=== PATIENT | female | born 1955 | race Caucasian/White ===

== ENCOUNTER 2017-05-21 15:10 | Observation (INO) | payer OTHER ==
[2017-05-21] MEDS ORDERED: ACETAMINOPHEN TAB 325 MG TAB PO STA (15:58)
[2017-05-21] MEDS ORDERED: IPRATROPIUM-ALBUTEROL 3 ML NEB INHALATION STA (15:59)
[2017-05-21 16:19] LABS: Basophils # (A) 0.1 k/uL (0-0.2); Basophils % (A) 0 %; CH 31.9; CHCM 33.3; Eosinophils # (A) 0.1 k/uL (0-0.7); Eosinophils % (A) 0 %; HCT 51.1 % (34.0-46.0); HDW 2.08; HGB 16.2 gm/dL (11.4-16.0); Luc # (Auto) 0.19; Luc % (Auto) 1; Lymphocytes # (A) 0.9 k/uL (1.0-4.8); Lymphocytes % (A) 6 %; MCH 30.6 pg (25.0-35.0); MCHC 31.8 g/dL (31.0-37.0); MCV 96.2 fL (80.0-100.0); Mean Platelet Volume 8.4; Monocytes # (A) 0.7 k/uL (0-1.0); Monocytes % (A) 5 %; Neutrophils % (A) 87 %; RBC 5.31 m/uL (3.80-5.40); RDW 13.7 % (11.5-15.5); WBC (Perox) 15.67
--- NOTE | 2017-05-21 16:26 | ED ---
General Adult HPI - General Chief complaint: Shortness of Breath Stated complaint: SOB Time Seen by Provider: 05/21/17 15:54 Source: patient, RN notes reviewed Mode of arrival: wheelchair Limitations: no limitations - History of Present Illness Initial comments: Patient is a pleasant 61-year-old female presenting to the emergency department with difficulty breathing. Onset of symptoms was 2 or 3 days ago. Patient does have cough with green sputum. Patient does have a history of COPD. Patient has had some subjective fever starting last night. - Related Data Home Medications Medication Instructions Recorded Confirmed Albuterol Inhaler [Ventolin Hfa 2 puff INHALATION RT-Q6H PRN 05/21/17 05/21/17 Inhaler] Albuterol Nebulized [Ventolin 2.5 mg INHALATION RT-QID PRN 05/21/17 05/21/17 Nebulized] Atorvastatin [Lipitor] 40 mg PO HS 05/21/17 05/21/17 Budesonide-Formot 160-4.5 Mcg 2 puff INHALATION RT-BID 05/21/17 05/21/17 [Symbicort 160-4.5 Mcg Inhaler] Cilostazol [Pletal] 100 mg PO BID 05/21/17 05/21/17 Ipratropium Nebulized [Atrovent 0.5 mg INHALATION RT-TID PRN 05/21/17 05/21/17 Nebulized] L.acidoph,Paracasei, B.lactis 1 cap PO BID 05/21/17 05/21/17 [Probiotic] Lisinopril [Prinivil] 10 mg PO DAILY 05/21/17 05/21/17 Loratadine [Claritin] 10 mg PO DAILY 05/21/17 05/21/17 Multivitamins, Thera [Multivitamin 1 tab PO BID 05/21/17 05/21/17 (formulary)] Ranitidine HCl [Zantac] 75 mg PO BID 05/21/17 05/21/17 Allergies Allergy/AdvReac Type Severity Reaction Status Date / Time umeclidinium Allergy Unknown Verified 05/21/17 16:19 [From Anoro Ellipta] vilanterol Allergy Unknown Verified 05/21/17 16:19 [From Anoro Ellipta] Review of Systems ROS Statement: Those systems with pertinent positive or pertinent negative responses have been documented in the HPI. ROS Other: All systems not noted in ROS Statement are negative. Constitutional: Reports: fever Eyes: Denies: eye pain ENT: Denies: ear pain Respiratory: Reports: cough, dyspnea Cardiovascular: Denies: chest pain Endocrine: Reports: fatigue Gastrointestinal: Denies: abdominal pain Genitourinary: Denies: dysuria Musculoskeletal: Denies: back pain Skin: Denies: rash Neurological: Denies: weakness Past Medical History Past Medical History: COPD, Vascular Disorder History of Any Multi-Drug Resistant Organisms: None Reported Past Psychological History: No Psychological Hx Reported Smoking Status: Current every day smoker Past Alcohol Use History: None Reported Past Drug Use History: None Reported General Exam Limitations: no limitations General appearance: alert Head exam: Present: atraumatic Eye exam: Present: normal appearance, PERRL ENT exam: Present: normal oropharynx Neck exam: Present: normal inspection Respiratory exam: Present: respiratory distress, wheezes, decreased breath sounds Cardiovascular Exam: Present: tachycardia GI/Abdominal exam: Present: soft. Absent: tenderness, guarding Extremities exam: Present: normal inspection. Absent: pedal edema, calf tenderness Neurological exam: Present: alert Psychiatric exam: Present: normal affect, normal mood Skin exam: Present: normal color Course Vital Signs 05/21/17 05/21/17 05/21/17 15:36 16:04 16:30 Temperature 101.0 F H Pulse Rate 134 H 120 H Respiratory 24 20 Rate Blood Pressure 133/64 O2 Sat by Pulse 82 L Oximetry 05/21/17 16:40 Temperature Pulse Rate 122 H Respiratory Rate Blood Pressure O2 Sat by Pulse Oximetry - Reevaluation(s) Reevaluation #1: 05/21/17 17:58 Patient meet sepsis criteria diagnosed at 1758. Patient reexamined and is improved. Patient is resting more comfortably and not in respiratory distress. Heart rate remains somewhat elevated. Lungs with continued decreased air exchange and only mild wheezing. Case was discussed in detail with Dr. sherwood , who will admit for Dr. kelly. Patient and family were updated on results and plan. EKG Findings - EKG Comments: EKG Findings:: Sinus tachycardia 1:30. HI 134. QRS 120. QT 320. QTc 470. Left axis. Septal Q waves. Nonspecific ST-T. PVC is present. Medical Decision Making - Lab Data Result diagrams: 05/21/17 15:55 05/21/17 16:29 Lab Results 05/21/17 05/21/17 05/21/17 Range/Units 15:55 15:55 15:55 WBC 15.0 H (3.8-10.6) k/uL RBC 5.31 (3.80-5.40) m/uL Hgb 16.2 H (11.4-16.0) gm/dL Hct 51.1 H (34.0-46.0) % MCV 96.2 (80.0-100.0) fL MCH 30.6 (25.0-35.0) pg MCHC 31.8 (31.0-37.0) g/dL RDW 13.7 (11.5-15.5) % Plt Count 197 (150-450) k/uL Neutrophils % 87 % Lymphocytes % 6 % Monocytes % 5 % Eosinophils % 0 % Basophils % 0 % Neutrophils # 13.0 H (1.3-7.7) k/uL Lymphocytes # 0.9 L (1.0-4.8) k/uL Monocytes # 0.7 (0-1.0) k/uL Eosinophils # 0.1 (0-0.7) k/uL Basophils # 0.1 (0-0.2) k/uL PT 11.0 (9.0-12.0) sec INR 1.1 (<1.2) APTT 23.2 (22.0-30.0) sec Sodium (137-145) mmol/L Potassium (3.5-5.1) mmol/L Chloride (98-107) mmol/L Carbon Dioxide (22-30) mmol/L Anion Gap mmol/L BUN (7-17) mg/dL Creatinine (0.52-1.04) mg/dL Est GFR (MDRD) Af Amer (>60 ml/min/1.73 sqM) Est GFR (MDRD) Non-Af (>60 ml/min/1.73 sqM) Glucose (74-99) mg/dL Plasma Lactic Acid Mark 1.5 (0.7-2.0) mmol/L Calcium (8.4-10.2) mg/dL Total Bilirubin (0.2-1.3) mg/dL AST (14-36) U/L ALT (9-52) U/L Alkaline Phosphatase (38-126) U/L Total Protein (6.3-8.2) g/dL Albumin (3.5-5.0) g/dL 05/21/17 Range/Units 16:29 WBC (3.8-10.6) k/uL RBC (3.80-5.40) m/uL Hgb (11.4-16.0) gm/dL Hct (34.0-46.0) % MCV (80.0-100.0) fL MCH (25.0-35.0) pg MCHC (31.0-37.0) g/dL RDW (11.5-15.5) % Plt Count (150-450) k/uL Neutrophils % % Lymphocytes % % Monocytes % % Eosinophils % % Basophils % % Neutrophils # (1.3-7.7) k/uL Lymphocytes # (1.0-4.8) k/uL Monocytes # (0-1.0) k/uL Eosinophils # (0-0.7) k/uL Basophils # (0-0.2) k/uL PT (9.0-12.0) sec INR (<1.2) APTT (22.0-30.0) sec Sodium 133 L (137-145) mmol/L Potassium 4.2 (3.5-5.1) mmol/L Chloride 96 L (98-107) mmol/L Carbon Dioxide 31 H (22-30) mmol/L Anion Gap 6 mmol/L BUN 12 (7-17) mg/dL Creatinine 0.62 (0.52-1.04) mg/dL Est GFR (MDRD) Af Amer >60 (>60 ml/min/1.73 sqM) Est GFR (MDRD) Non-Af >60 (>60 ml/min/1.73 sqM) Glucose 110 H (74-99) mg/dL Plasma Lactic Acid Mark (0.7-2.0) mmol/L Calcium 9.1 (8.4-10.2) mg/dL Total Bilirubin 0.6 (0.2-1.3) mg/dL AST 24 (14-36) U/L ALT 31 (9-52) U/L Alkaline Phosphatase 60 (38-126) U/L Total Protein 6.6 (6.3-8.2) g/dL Albumin 3.8 (3.5-5.0) g/dL - Radiology Data Radiology results: image reviewed (Chest x-ray shows interstitial changes and hyperinflation.) Critical Care Time Critical Care Time: Yes Total Critical Care Time: 32 Disposition Clinical Impression: Acute exacerbation of chronic obstructive airways disease, Sepsis, Pneumonitis Disposition: ADMITTED IP TO THIS [facility] Condition: Serious Referrals: Lamine Kelly MD [Primary Care Provider] - 1-2 days Decision Time: 18:05
[2017-05-21 16:40] LABS: INR 1.1 (<1.2); Partial Thromboplastin Time 23.2 sec (22.0-30.0)
[2017-05-21 16:51] LABS: Anion Gap 6 mmol/L; Blood Urea Nitrogen 12 mg/dL (7-17); Calcium 9.1 mg/dL (8.4-10.2); Carbon Dioxide 31 mmol/L (22-30); Chloride 96 mmol/L (98-107); Glucose 110 mg/dL (74-99); Non-African American GFR(MDRD) >60 (>60 ml/min/1.73 sqM); Potassium 4.2 mmol/L (3.5-5.1); Sodium 133 mmol/L (137-145); Total Bilirubin 0.6 mg/dL (0.2-1.3); Total Protein 6.6 g/dL (6.3-8.2)
[2017-05-21 16:52] LABS: ALT 31 U/L (9-52); AST 24 U/L (14-36); Alkaline Phosphatase 60 U/L (38-126)
[2017-05-21] MEDS: SODIUM CHLORIDE 0.9% 500 ML IV SCH ×4 (16:52→18:28)
--- NOTE | 2017-05-21 16:59 | XR ---
EXAMINATION TYPE: XR chest 2V DATE OF EXAM: 05/21/2017 COMPARISON: 08/30/2012 HISTORY: 62-year-old female with fever TECHNIQUE: PA and lateral views FINDINGS: Heart is upper limits of normal in size. Mild atherosclerotic arch calcifications. Diffuse interstiti al prominence increased from prior. Some peribronchial cuffing is noted on the lateral view. Hyperinf lation. No joe consolidation or pleural effusion. IMPRESSION: Interstitial changes and hyperinflation. Underlying COPD is suggested. However, the interstitial dudley ges are increased from prior. Correlate to exclude superimposed atypical pneumonias or interstitial p neumonitis.
[2017-05-21] MEDS ORDERED: BUDESONIDE 0.5 MG/2 ML NEBU INHALATION SCH (17:51)
[2017-05-21] MEDS ORDERED: methylPREDNISolone SOD SUCCI 40 MG/ML 1 ML VIAL IV SCH (18:00)
[2017-05-21] MEDS ORDERED: ENOXAPARIN 40 MG/0.4 ML SYRINGE SQ SCH (18:00)
[2017-05-21] MEDS ORDERED: LACTATED RINGERS 1,000 ML IV SCH (18:00)
[2017-05-21] MEDS ORDERED: NICOTINE 7MG/24HR PATCH TRANSDERM SCH (18:00)
[2017-05-21] MEDS ORDERED: AZITHROMYCIN 500 MG in SODIUM CHLORIDE 0.9% 250 ML IVPB STA (18:05)
[2017-05-21] MEDS ORDERED: PNEUMONIA PROTOCOL UTILIZED 1 EACH MISC PO PRN (18:05)
[2017-05-21] MEDS ORDERED: SODIUM CHLORIDE 0.9% 1,000 ML IV SCH (18:15)
[2017-05-21 18:41] VITALS: RESP 18
--- NOTE | 2017-05-21 19:58 | HP ---
HISTORY AND PHYSICAL DATE OF ADMISSION: 05/21/17 PRESENTING COMPLAINT: Short of breath. HISTORY OF PRESENTING COMPLAINT: A 61-year-old patient, pleasant patient of Dr. Kelly. Chronic stable medical conditions include hypertension, hyperlipidemia, GERD, peripheral artery disease. The patient is long-standing smoker. Has underlying COPD diagnosis. The patient presents 3 days of worsening short of breath, wheezing, cough with yellow-green sputum, fevers, decreased appetite, tired, run down and very short of breath. Presents to the hospital. REVIEW OF SYSTEMS: Constitutional: Weak and tired. HEENT as above. RESPIRATORY: As above. Cardiovascular: None. Gastrointestinal: Heartburn. Genitourinary: None. Musculoskeletal: None. Dermatological: Bruising. Hematologic none. Lymphatics: None. Psychiatry: Some anxiety. Neurologic: None. PAST HISTORY: COPD, hypertension, hyperlipidemia, GERD, peripheral artery disease with a blocked artery in the left leg per Dr. Han vascular surgeon. Not a candidate for any surgical intervention. PAST SURGICAL HISTORY: None. HOME MEDICATIONS: 1. Zantac 25 mg p.o. b.i.d. 2. Claritin 10 mg p.o. daily. 3. Lipitor 40 mg q.h.s. 4. Ventolin HFA 2 puffs q.6h p.r.n. 5. Multivitamin 1 tab p.o. b.i.d. 6. Probiotic 1 capsule p.o. b.i.d. 7. Atrovent 0.5 nebulizer t.i.d. p.r.n. 8. Symbicort 160/4.5 two puffs b.i.d. 9. Prinivil 10 mg p.o. daily. 10.Pletal 100 mg p.o. b.i.d. 11.Ventolin 2.5 q.i.d. p.r.n. ALLERGIES: ELLIPTA. PHYSICAL EXAMINATION: Temperature on presentation 101.1, pulse 134, respiratory rate 24, blood pressure 130/64, pulse ox 82% room air. General appearance: Thin built, short of breath at rest. EYES: Pupils equal, conjunctivae normal. HEENT: Oral cavity normal. NECK: JVD not raised. Mass not palpable. RESPIRATORY: Effort increased. Accessary muscles are working. Not able to speak in full sentences. Lungs poor air entry. Prolonged expiration. CARDIOVASCULAR: First and second sounds normal. No edema. ABDOMEN: Soft, nontender. Liver and spleen not palpable. Lymphatics: No lymph node palpable in the neck, axillae or groin. PSYCHIATRY: Alert and oriented times three. Mood and affect anxious appearing. Dermatological: Some bruising is present. INVESTIGATIONS: White count 15, hemoglobin 16.2, potassium 4.2, BUN 12, creatinine 0.62. Chest x-ray shows possible infiltrate. ASSESSMENT: 1. Acute severe chronic obstructive pulmonary disease exacerbation probably from underlying pneumonia suspect gram-negative organism, present on admission causing severe sepsis. 2. Essential hypertension. 3. Hyperlipidemia. 4. Peripheral artery disease. Not for further intervention. 5. Mild hyponatremia present on admission. Likely hypoosmolar. 6. Chronic nicotine dependence. Patient is a cigarette smoker. PLAN: Patient is started on IV ceftriaxone, nebulized bronchodilators, IV steroids. The patient advised against smoking. Will be started on a nicotine patch. Home medications will be resumed. Pulmonary being consulted. Care was discussed with the patient. We will also add IV fluids. Copy to Dr. Kelly. KAILASH / JUAN: [id number] /
[2017-05-21] MEDS ORDERED: SYMBICORT 160-4.5 MCG INHALER INHALATION SCH (20:00)
[2017-05-21] MEDS ORDERED: IPRATROPIUM-ALBUTEROL 3 ML NEB INHALATION SCH (20:00)
[2017-05-21 20:19] VITALS: BMI 21.9
[2017-05-21] MEDS ORDERED: FAMOTIDINE 20 MG TAB PO SCH (21:00)
[2017-05-21] MEDS ORDERED: CILOSTAZOL 100 MG TAB PO SCH (21:00)
[2017-05-21] MEDS ORDERED: ATORVASTATIN 40 MG TAB PO SCH (21:00)
[2017-05-21 21:06] VITALS: BP 121/77; PULSE 108; TEMP 97.3
[2017-05-22] MEDS ORDERED: LISINOPRIL 10 MG TAB PO SCH (09:00)
[2017-05-22] MEDS ORDERED: LORATADINE 10 MG TAB PO SCH (09:00)
--- NOTE | 2017-06-26 07:11 | DS ---
DISCHARGE SUMMARY DATE OF ADMISSION: 05/21/2017 DATE LEFT AGAINST MEDICAL ADVICE: 05/21/2017 FINAL DIAGNOSIS: 1. Acute severe chronic obstructive pulmonary disease exacerbation probably from underlying pneumonia, suspect gram-negative organism present on admission causing severe sepsis. 2. Essential hypertension. 3. Hyperlipidemia. 4. Peripheral artery disease, not for any further intervention. 5. Hyponatremia present on admission, likely hypoosmolar. 6. Chronic nicotine dependence, patient is a cigarette smoker. 7. Acute hypoxic respiratory failure, present on admission from underlying pneumonia and chronic obstructive pulmonary disease exacerbation. HOSPITAL COURSE: This is a patient of Dr. Lorenzana, presents with severe COPD exacerbation with pneumonia and sepsis-like picture. Patient is started on nebulized bronchodilators, antibiotics. On examination, patient decreased breath sounds and prolonged expiration. Patient decided to LEAVE AGAINST MEDICAL ADVICE. MMODL / IJN: [id number] /
== END 2017-05-21 21:08 | disposition left against medical advice (07) ==
LOC: SUPCPDRO 15:10 → EC 15:10 → 6SEL 18:05 → INTOOBSV 18:05
PROVIDERS: ADMIT Hospitalist; ATTEND Hospitalist
DX: J44.0 Chronic obstructive pulmonary disease with (acute) lower respiratory infection (principal); J18.9 Pneumonia, unspecified organism; A41.9 Sepsis, unspecified organism; J96.01 Acute respiratory failure with hypoxia; J44.1 Chronic obstructive pulmonary disease with (acute) exacerbation; E87.1 Hypo-osmolality and hyponatremia; I10 Essential (primary) hypertension; E78.5 Hyperlipidemia, unspecified; I73.9 Peripheral vascular disease, unspecified; K21.9 Gastro-esophageal reflux disease without esophagitis; F17.210 Nicotine dependence, cigarettes, uncomplicated; Z71.6 Tobacco abuse counseling; Z79.51 Long term (current) use of inhaled steroids; Z79.899 Other long term (current) drug therapy; Z88.8 Allergy status to other drugs, medicaments and biological substances
CPT/HCPCS: 99291 ×2; 96365 ×2; 96375 ×2; 96372 ×2; 96361 ×3; 36415; 94640; 93005; 80053; 83605; 85025; 85610; 85730; 87040; 87070; 87205; 71020; G0378; S4990; J2920; J1650; J0696

== ENCOUNTER 2017-06-08 19:39 | Emergency (ER) | payer OTHER ==
[2017-06-08 19:47] VITALS: RESP 20
[2017-06-08] MEDS ORDERED: SODIUM CHLORIDE 0.9% 1,000 ML IV STA (20:09)
[2017-06-08] MEDS ORDERED: methylPREDNISolone SOD SUCCI 125 MG/2 ML VIAL IV STA (20:09)
[2017-06-08] MEDS ORDERED: IPRATROPIUM-ALBUTEROL 3 ML NEB INHALATION STA (20:09)
--- NOTE | 2017-06-08 20:13 | ED ---
SOB HPI - General Source: patient, RN notes reviewed Mode of arrival: wheelchair Limitations: no limitations - History of Present Illness MD Complaint: shortness of breath, cough <Robb Adkins - Last Filed: 06/08/17 20:54> <Mara Fernandez - Last Filed: 06/08/17 21:33> - General Chief Complaint: Shortness of Breath Stated Complaint: Diff Breathing Time Seen by Provider: 06/08/17 19:50 - History of Present Illness Initial Comments: This is a 61-year-old female history of COPD who still smokes but is trying to quit who states she had the onset over last 1 or 2 days of shortness of breath and productive cough she has any fevers chills or sweats she does have developing phlegm for the past 2 days that is green in color. It was a dry cough prior to that she denies any fevers chills or sweats she believes she's developed a bronchitis which she normally gets at this time of year she has no chest pain or other symptoms to report (Robb Adkins) - Related Data Home Medications Medication Instructions Recorded Confirmed Albuterol Inhaler [Ventolin Hfa 2 puff INHALATION RT-Q6H PRN 05/21/17 06/08/17 Inhaler] Albuterol Nebulized [Ventolin 2.5 mg INHALATION RT-Q4H PRN 05/21/17 06/08/17 Nebulized] Atorvastatin [Lipitor] 40 mg PO HS 05/21/17 06/08/17 Budesonide-Formot 160-4.5 Mcg 2 puff INHALATION RT-BID 05/21/17 06/08/17 [Symbicort 160-4.5 Mcg Inhaler] Cilostazol [Pletal] 100 mg PO BID 05/21/17 06/08/17 Ipratropium Nebulized [Atrovent 0.5 mg INHALATION RT-Q4H PRN 05/21/17 06/08/17 Nebulized] L.acidoph,Paracasei, B.lactis 2 cap PO DAILY 05/21/17 06/08/17 [Probiotic] Lisinopril [Prinivil] 10 mg PO DAILY 05/21/17 06/08/17 Loratadine [Claritin] 10 mg PO DAILY 05/21/17 06/08/17 Fluticasone Nasal [place] [Flonase 1 spray EA NOSTRIL BID PRN 06/08/17 06/08/17 Nasal [place]] Gabapentin [Neurontin] 300 mg PO TID 06/08/17 06/08/17 Multivitamin [Multivitamins Adult 2 tab PO DAILY 06/08/17 06/08/17 Gummies] Ranitidine HCl 150 mg PO BID 06/08/17 06/08/17 Allergies Allergy/AdvReac Type Severity Reaction Status Date / Time umeclidinium Allergy Unknown Verified 06/08/17 21:01 [From Anoro Ellipta] vilanterol Allergy Unknown Verified 06/08/17 21:01 [From Anoro Ellipta] Review of Systems ROS Other: All systems not noted in ROS Statement are negative. <Robb Adkins - Last Filed: 06/08/17 20:54> ROS Other: All systems not noted in ROS Statement are negative. <Mara Fernandez - Last Filed: 06/08/17 21:33> ROS Statement: Those systems with pertinent positive or pertinent negative responses have been documented in the HPI. Past Medical History Past Medical History: COPD, Vascular Disorder History of Any Multi-Drug Resistant Organisms: None Reported Past Surgical History: Section Past Anesthesia/Blood Transfusion Reactions: No Reported Reaction Past Psychological History: No Psychological Hx Reported Smoking Status: Current every day smoker Past Alcohol Use History: None Reported Past Drug Use History: None Reported - Past Family History Father Family Medical History: Unable to Obtain Mother Family Medical History: Coronary Artery Disease (CAD), Hypertension <Robb Adkins - Last Filed: 06/08/17 20:54> General Exam Limitations: no limitations General appearance: alert, in distress Head exam: Present: atraumatic, normocephalic, normal inspection Eye exam: Present: normal appearance, PERRL, EOMI. Absent: scleral icterus, conjunctival injection, periorbital swelling ENT exam: Present: normal exam, mucous membranes moist Neck exam: Present: normal inspection. Absent: tenderness, meningismus, lymphadenopathy Respiratory exam: Present: normal lung sounds bilaterally, wheezes, accessory muscle use, decreased breath sounds. Absent: respiratory distress, rales, rhonchi, stridor Cardiovascular Exam: Present: regular rate, normal rhythm, normal heart sounds. Absent: systolic murmur, diastolic murmur, rubs, gallop, clicks GI/Abdominal exam: Present: soft, normal bowel sounds. Absent: distended, tenderness, guarding, rebound, rigid Extremities exam: Present: normal inspection, full ROM, normal capillary refill. Absent: tenderness, pedal edema, joint swelling, calf tenderness Back exam: Present: normal inspection Neurological exam: Present: alert, oriented X3, CN II-XII intact Psychiatric exam: Present: normal affect, normal mood Skin exam: Present: warm, dry, intact, normal color. Absent: rash <Robb Adkins - Last Filed: 06/08/17 20:54> <Mara Fernandez - Last Filed: 06/08/17 21:33> - General Exam Comments Initial Comments: This is a well-developed well-nourished awake alert oriented 3 female (Jed Robb) Course <Robb Adkins - Last Filed: 06/08/17 20:54> <Mara Fernandez - Last Filed: 06/08/17 21:33> Vital Signs 06/08/17 06/08/17 06/08/17 19:46 20:29 20:39 Temperature 99.1 F Pulse Rate 87 116 H 112 H Respiratory 20 20 Rate Blood Pressure 133/96 138/75 O2 Sat by Pulse 92 L 91 L Oximetry 06/08/17 20:55 Temperature Pulse Rate 112 H Respiratory Rate Blood Pressure O2 Sat by Pulse Oximetry Reassessed at 2127, she wants to go home I was bit concerned about her heart rate which was 1:15 at that point she said she will feel better if she could sleep in her own bed and comparing to when she came in her breathing status is as quite improved, he reviewed her chest x-ray which is unremarkable her CBC her compressive metabolic panel and troponin are all unremarkable, she was offered to be observed overnight considering her tachycardia will respect her wishes and she also has oxygen supply at home over discharge her to follow-up with her family doctor. At this time she denies any chest pain or shortness of breath no pleuritic chest pain no fever no chills she be gone home on Levaquin 500 milligrams once daily for next 7 days and prednisone 50 mg daily for next 5 days she will continue her inhalers (Mara Fernandez) - Reevaluation(s) Reevaluation #1: 06/08/17 20:51 The patient's care will be endorsed to Dr. Fernandez at our shift change who will make the final disposition (Robb Adkins) Medical Decision Making - Lab Data Result diagrams: 06/08/17 20:20 - EKG Data -: EKG Interpreted by [place] EKG shows normal: sinus rhythm (Sinus tachycardia rate 119. Interval 140 QRS 112 daily since QTC of 334/469 by atrial enlargement left exodeviation inferior and anterior changes of indeterminate age. This is compared with EKG dated 05/21 shows no morphology change) <Robb Adkins - Last Filed: 06/08/17 20:54> - Lab Data Result diagrams: 06/08/17 20:20 06/08/17 20:20 <Mara Fernandez - Last Filed: 06/08/17 21:33> - Lab Data Lab Results 06/08/17 06/08/17 06/08/17 Range/Units 20:20 20:20 20:20 WBC 9.1 (3.8-10.6) k/uL RBC 4.74 (3.80-5.40) m/uL Hgb 14.6 (11.4-16.0) gm/dL Hct 46.5 H (34.0-46.0) % MCV 98.1 (80.0-100.0) fL MCH 30.8 (25.0-35.0) pg MCHC 31.4 (31.0-37.0) g/dL RDW 14.0 (11.5-15.5) % Plt Count 232 (150-450) k/uL Neutrophils % 75 % Lymphocytes % 17 % Monocytes % 5 % Eosinophils % 1 % Basophils % 1 % Neutrophils # 6.8 (1.3-7.7) k/uL Lymphocytes # 1.5 (1.0-4.8) k/uL Monocytes # 0.5 (0-1.0) k/uL Eosinophils # 0.1 (0-0.7) k/uL Basophils # 0.1 (0-0.2) k/uL Sodium 137 (137-145) mmol/L Potassium 4.1 (3.5-5.1) mmol/L Chloride 98 (98-107) mmol/L Carbon Dioxide 29 (22-30) mmol/L Anion Gap 10 mmol/L BUN 8 (7-17) mg/dL Creatinine 0.50 L (0.52-1.04) mg/dL Est GFR (MDRD) Af Amer >60 (>60 ml/min/1.73 sqM) Est GFR (MDRD) Non-Af >60 (>60 ml/min/1.73 sqM) Glucose 118 H (74-99) mg/dL Calcium 9.6 (8.4-10.2) mg/dL Magnesium 1.8 (1.6-2.3) mg/dL Total Bilirubin 0.5 (0.2-1.3) mg/dL AST 20 (14-36) U/L ALT 33 (9-52) U/L Alkaline Phosphatase 71 (38-126) U/L Total Creatine Kinase 53 (30-135) U/L CK-MB (CK-2) 2.1 (0.0-2.4) ng/mL CK-MB (CK-2) Rel Index 4.0 Troponin I <0.012 (0.000-0.034) ng/mL Total Protein 6.4 (6.3-8.2) g/dL Albumin 3.7 (3.5-5.0) g/dL Disposition <Robb Adkins - Last Filed: 06/08/17 20:54> <Mara Fernandez - Last Filed: 06/08/17 21:33> Clinical Impression: COPD with acute exacerbation Disposition: HOME SELF-CARE Condition: Good Instructions: Chronic Bronchitis (ED) Referrals: Lamine Kelly MD [Primary Care Provider] - 1-2 days
--- NOTE | 2017-06-08 20:45 | XR ---
EXAMINATION TYPE: XR chest 2V DATE OF EXAM: 06/08/2017 COMPARISON: May 21, 2017 HISTORY: Difficulty breathing TECHNIQUE: Frontal and lateral views of the chest are obtained. FINDINGS: There is no focal air space opacity, pleural effusion, or pneumothorax seen. The cardiac silhouette size is within normal limits. The osseous structures are intact. IMPRESSION: No acute cardiopulmonary process.
[2017-06-08 20:48] LABS: Basophils # (A) 0.1 k/uL (0-0.2); Basophils % (A) 1 %; CH 31.8; CHCM 32.6; Eosinophils # (A) 0.1 k/uL (0-0.7); Eosinophils % (A) 1 %; HCT 46.5 % (34.0-46.0); HDW 2.03; HGB 14.6 gm/dL (11.4-16.0); Luc # (Auto) 0.17; Luc % (Auto) 2; Lymphocytes # (A) 1.5 k/uL (1.0-4.8); Lymphocytes % (A) 17 %; MCH 30.8 pg (25.0-35.0); MCHC 31.4 g/dL (31.0-37.0); MCV 98.1 fL (80.0-100.0); Mean Platelet Volume 8.3; Monocytes # (A) 0.5 k/uL (0-1.0); Monocytes % (A) 5 %; Neutrophils # (A) 6.8 k/uL (1.3-7.7); Neutrophils % (A) 75 %; RBC 4.74 m/uL (3.80-5.40); WBC 9.1 k/uL (3.8-10.6); WBC (Perox) 8.38
[2017-06-08 20:55] LABS: ALT 33 U/L (9-52); AST 20 U/L (14-36); Alkaline Phosphatase 71 U/L (38-126); Anion Gap 10 mmol/L; Blood Urea Nitrogen 8 mg/dL (7-17); Calcium 9.6 mg/dL (8.4-10.2); Carbon Dioxide 29 mmol/L (22-30); Chloride 98 mmol/L (98-107); Glucose 118 mg/dL (74-99); Magnesium 1.8 mg/dL (1.6-2.3); Non-African American GFR(MDRD) >60 (>60 ml/min/1.73 sqM); Potassium 4.1 mmol/L (3.5-5.1); Sodium 137 mmol/L (137-145); Total Bilirubin 0.5 mg/dL (0.2-1.3); Total Protein 6.4 g/dL (6.3-8.2)
[2017-06-08 20:59] LABS: Creatine Kinase 53 U/L (30-135)
[2017-06-08 21:12] LABS: Creatine Kinase MB 2.1 ng/mL (0.0-2.4); Troponin I <0.012 ng/mL (0.000-0.034)
[2017-06-08 21:37] LABS: INR 1.1 (<1.2); Partial Thromboplastin Time 25.3 sec (22.0-30.0); Prothrombin Time 10.7 sec (9.0-12.0)
[2017-06-08 22:01] VITALS: BP 161/77; PULSE 112; TEMP 97.6
== END 2017-06-08 22:01 | disposition home or self-care (01) ==
LOC: EC 19:39
DX: J44.1 Chronic obstructive pulmonary disease with (acute) exacerbation (principal); I99.9 Unspecified disorder of circulatory system; F17.200 Nicotine dependence, unspecified, uncomplicated; Z79.51 Long term (current) use of inhaled steroids; Z79.899 Other long term (current) drug therapy; Z88.8 Allergy status to other drugs, medicaments and biological substances
CPT/HCPCS: 99285 ×2; 96374 ×2; 96361 ×2; 36415; 94640; 93005; 83880; 80053; 82550; 82553; 83735; 84484; 85025; 85610; 85730; 87040; 71020; J2930

== ENCOUNTER 2018-01-13 15:51 | Inpatient (IN) | payer MEDICARE, OTHER ==
[2018-01-13] MEDS ORDERED: ALBUTEROL NEBULIZED 2.5 MG/3 ML INHALATION STA (16:22)
[2018-01-13] MEDS ORDERED: SODIUM CHLORIDE 0.9% 1,000 ML IV STA ×2 (16:22)
[2018-01-13] MEDS ORDERED: methylPREDNISolone SOD SUCCI 125 MG/2 ML VIAL IV STA (16:22)
[2018-01-13] MEDS ORDERED: IPRATROPIUM 0.5 MG/2.5 ML NEBU INHALATION STA (16:22)
[2018-01-13 16:46] LABS: Basophils % (A) 0 %; Eosinophils # (A) 0.1 k/uL (0-0.7); Eosinophils % (A) 1 %; HCT 37.7 % (34.0-46.0); HGB 12.6 gm/dL (11.4-16.0); Lymphocytes # (A) 0.8 k/uL (1.0-4.8); Lymphocytes % (A) 9 %; MCH 30.5 pg (25.0-35.0); MCHC 33.3 g/dL (31.0-37.0); MCV 91.4 fL (80.0-100.0); Mean Platelet Volume 7.3; Monocytes # (A) 0.4 k/uL (0-1.0); Monocytes % (A) 5 %; Neutrophils # (A) 7.1 k/uL (1.3-7.7); Neutrophils % (A) 83 %; Platelet Count 236 k/uL (150-450); RBC 4.13 m/uL (3.80-5.40); RDW 13.3 % (11.5-15.5); WBC 8.6 k/uL (3.8-10.6)
[2018-01-13 16:54] LABS: ALT 42 U/L (9-52); AST 35 U/L (14-36); Albumin 3.4 g/dL (3.5-5.0); Alkaline Phosphatase 62 U/L (38-126); Anion Gap 11 mmol/L; Blood Urea Nitrogen 13 mg/dL (7-17); Calcium 9.2 mg/dL (8.4-10.2); Carbon Dioxide 31 mmol/L (22-30); Chloride 92 mmol/L (98-107); Glucose 98 mg/dL (74-99); Magnesium 1.7 mg/dL (1.6-2.3); Potassium 4.5 mmol/L (3.5-5.1); Sodium 134 mmol/L (137-145); Total Bilirubin 0.2 mg/dL (0.2-1.3); Total Protein 5.8 g/dL (6.3-8.2)
[2018-01-13 17:09] LABS: D-Dimer 0.53 mg/L FEU (<0.60); INR 0.9 (<1.2); Partial Thromboplastin Time 26.3 sec (22.0-30.0); Prothrombin Time 9.5 sec (9.0-12.0)
[2018-01-13 17:25] LABS: Troponin I 0.135 ng/mL (0.000-0.034)
--- NOTE | 2018-01-13 17:26 | ED ---
General Adult HPI - General Chief complaint: Shortness of Breath Stated complaint: SOB Time Seen by Provider: 01/13/18 15:56 Source: patient, RN notes reviewed, old records reviewed Mode of arrival: wheelchair Limitations: no limitations - History of Present Illness Initial comments: This is a 62-year-old female the ER for evaluation of severe shortness of breath , inability to breathe, inability take a deep breath. No chest pain. Symptoms worse 3 days, patient does have history of COPD and continues to smoke. No fevers but she does have increased positive cough and congestion with mucus production. No travel history, patient denies recent hospitalizations - Related Data Home Medications Medication Instructions Recorded Confirmed Albuterol Inhaler [Ventolin Hfa 2 puff INHALATION RT-Q6H PRN 05/21/17 01/13/18 Inhaler] Albuterol Nebulized [Ventolin 2.5 mg INHALATION RT-Q4H PRN 05/21/17 01/13/18 Nebulized] Atorvastatin [Lipitor] 40 mg PO HS 05/21/17 01/13/18 Budesonide-Formot 160-4.5 Mcg 2 puff INHALATION RT-BID 05/21/17 01/13/18 [Symbicort 160-4.5 Mcg Inhaler] Cilostazol [Pletal] 100 mg PO BID 05/21/17 01/13/18 Ipratropium Nebulized [Atrovent 0.5 mg INHALATION RT-Q4H PRN 05/21/17 01/13/18 Nebulized] L.acidoph,Paracasei, B.lactis 2 cap PO DAILY 05/21/17 01/13/18 [Probiotic] Lisinopril [Prinivil] 10 mg PO DAILY 05/21/17 01/13/18 Loratadine [Claritin] 10 mg PO DAILY 05/21/17 01/13/18 Fluticasone Nasal [place] [Flonase 1 spray EA NOSTRIL BID PRN 06/08/17 01/13/18 Nasal [place]] Gabapentin [Neurontin] 300 mg PO TID 06/08/17 01/13/18 Multivitamin [Multivitamins Adult 2 tab PO DAILY 06/08/17 01/13/18 Gummies] Ranitidine HCl 150 mg PO BID 06/08/17 01/13/18 Allergies Allergy/AdvReac Type Severity Reaction Status Date / Time umeclidinium Allergy Unknown Verified 01/13/18 16:07 [From Anoro Ellipta] vilanterol Allergy Unknown Verified 01/13/18 16:07 [From Anoro Ellipta] Review of Systems ROS Statement: Those systems with pertinent positive or pertinent negative responses have been documented in the HPI. ROS Other: All systems not noted in ROS Statement are negative. Past Medical History Past Medical History: COPD, Vascular Disorder History of Any Multi-Drug Resistant Organisms: None Reported Past Surgical History: Section Past Anesthesia/Blood Transfusion Reactions: No Reported Reaction Past Psychological History: No Psychological Hx Reported Smoking Status: Current every day smoker Past Alcohol Use History: None Reported Past Drug Use History: None Reported - Past Family History Father Family Medical History: Unable to Obtain Mother Family Medical History: Coronary Artery Disease (CAD), Hypertension General Exam Limitations: no limitations General appearance: alert, anxious, cachectic Head exam: Present: atraumatic, normocephalic, normal inspection Eye exam: Present: normal appearance, PERRL, EOMI. Absent: scleral icterus, conjunctival injection, periorbital swelling ENT exam: Present: normal exam, mucous membranes moist Neck exam: Present: normal inspection. Absent: tenderness, meningismus, lymphadenopathy Respiratory exam: Present: respiratory distress, wheezes, accessory muscle use, decreased breath sounds, prolonged expiratory. Absent: rales, rhonchi, stridor Cardiovascular Exam: Present: normal rhythm, tachycardia, normal heart sounds. Absent: systolic murmur, diastolic murmur, rubs, gallop, clicks GI/Abdominal exam: Present: soft, normal bowel sounds. Absent: distended, tenderness, guarding, rebound, rigid Extremities exam: Present: normal inspection, full ROM, normal capillary refill. Absent: tenderness, pedal edema, joint swelling, calf tenderness Back exam: Present: normal inspection Neurological exam: Present: alert, oriented X3, CN II-XII intact Psychiatric exam: Present: normal affect, normal mood Skin exam: Present: warm, dry, intact, normal color. Absent: rash Course Vital Signs 01/13/18 01/13/18 01/13/18 15:53 16:09 16:14 Temperature 98.1 F Pulse Rate 124 H 117 H Respiratory 24 28 H 28 H Rate Blood Pressure 107/55 110/59 O2 Sat by Pulse 86 L 93 L Oximetry 01/13/18 01/13/18 01/13/18 16:47 17:00 17:23 Temperature Pulse Rate 115 H 115 H 120 H Respiratory Rate Blood Pressure O2 Sat by Pulse Oximetry 01/13/18 01/13/18 17:34 18:46 Temperature Pulse Rate 121 H 127 H Respiratory 24 22 Rate Blood Pressure 115/65 107/59 O2 Sat by Pulse 91 L 92 L Oximetry - Reevaluation(s) Reevaluation #1: 01/13/18 18:49 Patient with no improvement after prolonged breathing treatment Reevaluation #2: 01/13/18 18:49 Spoke with patient's bit shaver who states patient is deteriorating despite outpatient treatment EKG Findings - EKG Comments: EKG Findings:: EKG shows sinus tachycardia rate 170, MA 13, QRS 116, QTc 485 Medical Decision Making - Medical Decision Making 62 female the ER for positive COPD exacerbation with hypoxia and respiratory failure, failure of outpatient treatment. Patient to be admitted - Lab Data Result diagrams: 01/13/18 16:31 01/13/18 16:31 - Radiology Data Radiology results: report reviewed (Chest x-rays negative), image reviewed Critical Care Time Critical Care Time: Yes Total Critical Care Time: 31 Critical Care Time: 31 Disposition Clinical Impression: Asthma with status asthmaticus, Acute exacerbation of chronic obstructive airways disease, Failure of outpatient treatment, Hypoxia Disposition: ADMITTED IP TO THIS HOSP Condition: Fair Is patient prescribed a controlled substance at d/c from ED?: No
--- NOTE | 2018-01-13 18:17 | XR ---
EXAMINATION TYPE: XR chest 1V portable DATE OF EXAM: 01/13/2018 COMPARISON: Prior chest 06/08/2017 HISTORY: Shortness of breath TECHNIQUE: Single frontal view of the chest is obtained. FINDINGS: The patient is rotated. Difficult to exclude right lower lobe airspace disease. There is n o pleural effusion or pneumothorax seen. The cardiac silhouette size is within normal limits. The osseous structures are intact. There are overlying cardiac leads. IMPRESSION: Rotated exam, consider follow-up PA and lateral chest x-ray for better evaluation.
[2018-01-13] MEDS: SODIUM CHLORIDE 0.9% 1,000 ML IV SCH (18:57)
[2018-01-13] MEDS ORDERED: IPRATROPIUM-ALBUTEROL 3 ML NEB INHALATION SCH (20:00)
[2018-01-13] MEDS ORDERED: ACETAMINOPHEN TAB 325 MG TAB PO PRN (20:37)
[2018-01-13] MEDS ORDERED: ONDANSETRON 4 MG/2 ML VIAL IVP PRN (20:37)
[2018-01-13] MEDS ORDERED: MAGNESIUM HYDROXIDE 2,400 MG/10 ML CUP PO PRN (20:37)
[2018-01-13] MEDS ORDERED: CALCIUM CARBONATE 500 MG CHEWABLE PO PRN (20:37)
[2018-01-13] MEDS ORDERED: LACTULOSE 20 GM/30 ML CUP PO PRN (20:37)
[2018-01-13] MEDS ORDERED: MELATONIN 3 MG TABLET PO PRN (20:37)
[2018-01-13 20:48] LABS: Glucose,Whole Blood 149 mg/dL (75-99)
[2018-01-13] MEDS ORDERED: FAMOTIDINE 20 MG TAB PO SCH (21:00)
[2018-01-13] MEDS: IPRATROPIUM-ALBUTEROL 3 ML NEB INHALATION SCH (21:39)
[2018-01-13] MEDS: BUDESONIDE 1 MG/2 ML NEBU INHALATION SCH (21:39)
[2018-01-13] MEDS: ATORVASTATIN 40 MG TAB PO SCH (21:51)
[2018-01-13] MEDS: GABAPENTIN 300 MG CAP PO SCH (21:52)
[2018-01-13] MEDS: INSULIN ASPART 100 UNIT/ML 1 ML 10 ML VIAL SQ SCH (21:52)
[2018-01-13] MEDS: CILOSTAZOL 100 MG TAB PO SCH (21:52)
[2018-01-13] MEDS: methylPREDNISolone SOD SUCCI 125 MG/2 ML VIAL IV SCH (23:27)
[2018-01-13] MEDS: ALPRAZolam 0.25 MG TAB PO PRN (23:27)
[2018-01-14] MEDS: IPRATROPIUM-ALBUTEROL 3 ML NEB INHALATION SCH ×7 (00:55→23:41)
[2018-01-14] MEDS: SODIUM CHLORIDE 0.9% 1,000 ML IV SCH ×3 (03:31→23:58)
[2018-01-14 04:15] LABS: Hemoglobin A1C 6.2 % (4.0-6.0)
[2018-01-14 04:17] LABS: Glucose,Whole Blood 163 mg/dL (75-99)
[2018-01-14] MEDS: ALPRAZolam 0.25 MG TAB PO PRN (04:29)
[2018-01-14 05:33] LABS: ABG Base Excess 2.3 mmol/L; ABG HCO3 31 mmol/L (21-25); ABG Oxygen Saturation 85.7 % (94-97); ABG PO2 63 mmHg (83-108); ABG TCO2 34 mmol/L (19-24)
--- NOTE | 2018-01-14 05:35 | XR ---
EXAM: XR Chest, 1 View CLINICAL HISTORY: ITS.REASON XR Reason: shortness of breath TECHNIQUE: Frontal view of the chest. COMPARISON: 01/13/18 FINDINGS: Lungs: Increasing interstitial markings as well as slightly worsened airspace opacities in the lower lobes. Pleural space: Blunting of the cost phrenic sulci and questionable effusions. No pneumothorax. Heart: Cardiac silhouette is stable size. Increasing pulmonary venous distention is present. Mediastinum: Unremarkable. Bones/joints: Unremarkable. IMPRESSION: 1. Progressing central pulmonary venous congestion as well as interstitial thickening and lower lobe opacities which may represent edema. Infectious infiltrate also not excluded. Query small pleural effusions.
[2018-01-14 05:36] LABS: ABG PCO2 92 mmHg (35-45); ABG PH 7.14 (7.35-7.45)
[2018-01-14] MEDS: methylPREDNISolone SOD SUCCI 125 MG/2 ML VIAL IV SCH ×4 (05:45→23:58)
[2018-01-14 05:48] LABS: Glucose,Whole Blood 173 mg/dL (75-99)
[2018-01-14] MEDS ORDERED: ROCURONIUM BROMIDE 10 MG/ML 10 ML VIAL IV ONE (06:13)
[2018-01-14] MEDS ORDERED: MIDAZOLAM 2 MG/2 ML VIAL ONE (06:13)
[2018-01-14] MEDS ORDERED: PROPOFOL 100 ML IV ONE (06:20)
[2018-01-14] MEDS: PROPOFOL 1,000 MG in EMPTY BAG 1 BAG IV SCH ×2 (06:30→21:38)
--- NOTE | 2018-01-14 06:57 | XR ---
EXAM: XR Chest, 1 View CLINICAL HISTORY: ITS.REASON XR Reason: intubated TECHNIQUE: Frontal view of the chest. COMPARISON: 01/14/18 FINDINGS: Lungs: Persistent mild interstitial prominence with improvement of lower lobe airspace opacities possibly related to increased lung aeration. Pleural space: No evidence for pleural effusion. No evidence for pneumothorax. Heart: Unremarkable. No cardiomegaly. Mediastinum: Unremarkable. Bones/joints: Unremarkable. Tubes, lines and devices: Endotracheal tube is identified with tip in appropriate location at the level of the aortic arch, 2.8 cm from the joann. Nasogastric tube is identified with its side-port below the gastroesophageal junction in appropriate location. IMPRESSION: 1. Appropriate endotracheal and gastric tube placements. 2. Persistent though improved interstitial prominence as well as improved lower lobe airspace opacities. No evidence for effusion.
[2018-01-14 07:18] LABS: Blood Urea Nitrogen 15 mg/dL (7-17); Calcium 8.9 mg/dL (8.4-10.2); Carbon Dioxide 32 mmol/L (22-30); Glucose 184 mg/dL (74-99); Potassium 5.6 mmol/L (3.5-5.1); Sodium 138 mmol/L (137-145)
[2018-01-14 07:25] LABS: ABG Base Excess 1.5 mmol/L; ABG HCO3 30 mmol/L (21-25); ABG Oxygen Saturation 99.6 % (94-97); ABG PO2 >400 mmHg (83-108); ABG TCO2 32 mmol/L (19-24)
[2018-01-14 07:26] LABS: ABG PCO2 75 mmHg (35-45)
[2018-01-14 07:30] LABS: Anion Gap 11 mmol/L; Chloride 95 mmol/L (98-107)
[2018-01-14] MEDS: BUDESONIDE 1 MG/2 ML NEBU INHALATION SCH ×2 (07:59→20:09)
[2018-01-14] MEDS ORDERED: SYMBICORT 160-4.5 MCG INHALER INHALATION SCH (08:00)
[2018-01-14] MEDS ORDERED: HEPARIN SODIUM,PORCINE 5,000 UNIT/ML 1 ML VIAL SQ SCH (08:00)
[2018-01-14 08:07] LABS: Magnesium 1.9 mg/dL (1.6-2.3); Phosphorus 5.8 mg/dL (2.5-4.5)
[2018-01-14 08:20] LABS: Basophils % (A) 0 %; Eosinophils % (A) 0 %; HCT 41.9 % (34.0-46.0); HGB 13.4 gm/dL (11.4-16.0); Hypochromasia Slight; Lymphocytes # (A) 0.3 k/uL (1.0-4.8); Lymphocytes % (A) 7 %; MCH 30.6 pg (25.0-35.0); MCV 95.8 fL (80.0-100.0); Mean Platelet Volume 7.7; Monocytes # (A) 0.1 k/uL (0-1.0); Monocytes % (A) 2 %; Neutrophils # (A) 4.8 k/uL (1.3-7.7); Neutrophils % (A) 90 %; Platelet Count 287 k/uL (150-450); RBC 4.37 m/uL (3.80-5.40); RDW 13.1 % (11.5-15.5); WBC 5.3 k/uL (3.8-10.6)
[2018-01-14] MEDS: INSULIN ASPART 100 UNIT/ML 1 ML 10 ML VIAL SQ SCH ×4 (09:10→21:26)
[2018-01-14 09:40] LABS: Appearance,Urine Clear (Clear); Bilirubin,Urine Negative (Negative); Blood,Urine Negative (Negative); Color,Urine Yellow; Glucose,Urine (UA) Negative (Negative); Hyaline Casts,Urine 1 /lpf (0-2); Ketones,Urine Negative (Negative); Leukocyte Esterase,Urine Negative (Negative); Mucus,Urine Rare /hpf; Nitrite,Urine Negative (Negative); Protein,Urine 1+ (Negative); Specific Gravity,Urine 1.012 (1.001-1.035); Squamous Epithelial Cell,Urine 1 /hpf (0-4); Urobilinogen,Urine <2.0 mg/dL (<2.0); WBC,Urine 2 /hpf (0-5)
[2018-01-14] MEDS: MULTIVITAMINS, THERA 1 EACH TAB PO SCH (10:29)
[2018-01-14] MEDS: LACTOBACILLUS ACIDOPH & BULGAR 1 EACH PACKET PO SCH (10:29)
[2018-01-14] MEDS: LISINOPRIL 10 MG TAB PO SCH (10:29)
[2018-01-14] MEDS: AZITHROMYCIN 500 MG TAB PO SCH (10:29)
[2018-01-14] MEDS: GABAPENTIN 300 MG CAP PO SCH ×3 (10:30→21:26)
[2018-01-14] MEDS: LORATADINE 10 MG TAB PO SCH (10:30)
--- NOTE | 2018-01-14 10:48 | P.CNPUL ---
History of Present Illness Consult date: 01/14/18 Reason for consult: dyspnea, asthma, COPD Chief complaint: Acute respirator failure History of present illness: Ms. 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 patient has chronic hypoxic respirator failure on supplemental oxygen with 2 L at home 24 7, patient also has a component of chronic persistent severe asthma has been on breathing treatments and steroids intermittently patient recently had a acute exacerbation for which she was treated on oral antibiotics and oral prednisone her outpatient setting however did not improve patient was in fact seen yesterday in the office her saturation was only 73% on 3 L oxygen she was extremely short of breath tachypneic and tachycardic heart rate is 120 to 130 patient the insist on not going to hospital , after extensive decision patient eventually agreed to go to the emergency department care plan discussed with the emergency room physician and patient was sent to the ER immediately, patient was admitted on the floor where she was tachypneic tachycardic and severely hypoxic and has audible wheezing poor air entry and chest tightness was present eventually was transferred to the ICU and intubated as stat arterial blood gas revealed worsening hypercapnia and hypoxia , patient seen eval reexamined care plan discussed with the family present at bedside currently patient is on full ventilator support sedated with propofol 50 mics at a lesser dose patient was agitated anxious, when setting include assist control rate of 20 breathing at a rate of 20 as well, tidal volume while 350, PEEP of 5, and FiO2 has been titrated down to 40%, labs and x-ray reviewed some improvement in acute respiratory acidosis noted with assisted ventilation. Peak airway pressure on the high 20s heart rate remains 110-120, All 3 chest x-ray performed from the emergency department earlier this morning pre-and post intubation reviewed initial x-ray right lower lobe infiltrate cannot be excluded, repeat chest x-ray revealed bilateral infiltrate suggestive of bilateral pneumonia, postintubation x-ray reviewed ET tube and NG tube are stable, bilateral airspace disease noted, sputum has been sent for culture, one thing is of concern patient is more hypoxic than usual, other etiologies like pulmonary embolism cannot be excluded we will check a d-dimer if a high then consider doing a spiral CT scan of the chest Review of Systems ROS unobtainable: due to endotracheal tube Past Medical History Past Medical History: COPD, Vascular Disorder History of Any Multi-Drug Resistant Organisms: None Reported Past Surgical History: Section Past Anesthesia/Blood Transfusion Reactions: No Reported Reaction Past Psychological History: No Psychological Hx Reported Smoking Status: Current every day smoker Past Alcohol Use History: None Reported Past Drug Use History: None Reported - Past Family History Father Family Medical History: Unable to Obtain Mother Family Medical History: Coronary Artery Disease (CAD), Hypertension Medications and Allergies Home Medications Medication Instructions Recorded Confirmed Type Albuterol Inhaler [Ventolin Hfa 2 puff INHALATION RT-Q6H PRN 05/21/17 01/13/18 History Inhaler] Albuterol Nebulized [Ventolin 2.5 mg INHALATION RT-Q4H PRN 05/21/17 01/13/18 History Nebulized] Atorvastatin [Lipitor] 40 mg PO HS 05/21/17 01/13/18 History Budesonide-Formot 160-4.5 Mcg 2 puff INHALATION RT-BID 05/21/17 01/13/18 History [Symbicort 160-4.5 Mcg Inhaler] Cilostazol [Pletal] 100 mg PO BID 05/21/17 01/13/18 History Ipratropium Nebulized [Atrovent 0.5 mg INHALATION RT-Q4H PRN 05/21/17 01/13/18 History Nebulized] L.acidoph,Paracasei, B.lactis 2 cap PO DAILY 05/21/17 01/13/18 History [Probiotic] Lisinopril [Prinivil] 10 mg PO DAILY 05/21/17 01/13/18 History Loratadine [Claritin] 10 mg PO DAILY 05/21/17 01/13/18 History Fluticasone Nasal [place] [Flonase 1 spray EA NOSTRIL BID PRN 06/08/17 01/13/18 History Nasal [place]] Gabapentin [Neurontin] 300 mg PO TID 06/08/17 01/13/18 History Multivitamin [Multivitamins Adult 2 tab PO DAILY 06/08/17 01/13/18 History Gummies] Ranitidine HCl 150 mg PO BID 06/08/17 01/13/18 History Allergies Allergy/AdvReac Type Severity Reaction Status Date / Time umeclidinium Allergy Unknown Verified 01/13/18 16:07 [From Anoro Ellipta] vilanterol Allergy Unknown Verified 01/13/18 16:07 [From Anoro Ellipta] Physical Exam Vitals: Vital Signs Temp Pulse Pulse Resp BP BP Pulse Ox 01/14/18 08:13 120 H 01/14/18 08:00 130 H 24 01/14/18 07:59 120 H 01/14/18 04:53 125 H 26 H 95 01/14/18 04:14 134 H 01/14/18 04:00 140 H 26 H 139/84 98 01/14/18 03:58 140 H 26 H 01/14/18 03:49 142 H 01/14/18 00:00 96.1 F L 125 H 24 144/87 95 01/13/18 21:51 114 H 01/13/18 21:39 116 H 01/13/18 20:00 115 H 24 01/13/18 19:26 114 H 01/13/18 19:16 112 H 01/13/18 18:46 98 F 127 H 22 107/59 92 L 01/13/18 18:38 96.4 F L 115 H 20 136/76 92 L 01/13/18 17:34 121 H 24 115/65 91 L 01/13/18 17:23 120 H 01/13/18 17:00 115 H 01/13/18 16:47 115 H 01/13/18 16:14 117 H 28 H 110/59 93 L 01/13/18 16:09 28 H 01/13/18 15:53 98.1 F 124 H 24 107/55 86 L Intake and Output 01/13/18 01/14/18 01/14/18 22:59 06:59 14:59 Intake Total 3.960 Output Total 200 Balance -200 3.960 Intake: Intake, IV Titration 3.960 Amount Propofol 1,000 mg In 3.960 Empty Bag 1 bag @ Titrate IV .Q0M [facility] Rx#: [id number] Output: Urine 200 Other: Voiding Method Toilet # Voids 1 Weight 44.2 kg 44.2 kg Patient is intubated on full ventilator support sedated with propofol drip - Constitutional General appearance: mild distress, thin - EENT Eyes: PERRLA, normal appearance Ears: bilateral: normal - Neck Neck: normal ROM Carotids: bilateral: upstroke normal, bruit absent Thyroid: bilateral: normal size - Respiratory Respiratory: bilateral: diminished, rhonchi (Noted during both inspiratory and expiratory phase), wheezing (Noted both during inspiratory expiratory phase) - Cardiovascular Heart sounds: normal: S1, S2 - Gastrointestinal General gastrointestinal: decreased bowel sounds, soft - Integumentary Integumentary: decreased turgor - Neurologic Patient intubated unable to do a detailed exam but does follow commands moving all 4 extremity Neurologic: CNII-XII intact - Musculoskeletal Patient intubated unable to do a detailed exam Musculoskeletal: generalized weakness, strength equal bilaterally - Psychiatric Patient intubated unable to do a detailed exam Results - Laboratory Findings CBC and BMP: 01/14/18 06:40 01/14/18 06:40 ABG ABG pH 7.20 (7.35-7.45) L* 01/14/18 07:24 ABG pCO2 75 mmHg (35-45) H* 01/14/18 07:24 ABG pO2 >400 mmHg (83-108) H 01/14/18 07:24 ABG O2 Saturation 99.6 % (94-97) H 01/14/18 07:24 PT/INR, D-dimer PT 9.5 sec (9.0-12.0) 01/13/18 16:31 INR 0.9 (<1.2) 01/13/18 16:31 D-Dimer 0.53 mg/L FEU (<0.60) 01/13/18 16:31 Abnormal lab findings: Abnormal Labs 01/13/18 01/13/18 01/13/18 16:31 16:31 16:31 Lymphocytes # 0.8 L ABG pH ABG pCO2 ABG pO2 ABG HCO3 ABG Total CO2 ABG O2 Saturation Sodium 134 L Potassium Chloride 92 L Carbon Dioxide 31 H Glucose POC Glucose (mg/dL) Hemoglobin A1c Phosphorus CK-MB (CK-2) 4.0 H* Troponin I 0.135 H* Total Protein 5.8 L Albumin 3.4 L Urine Protein Urine Mucus 01/13/18 01/13/18 01/14/18 16:31 20:46 04:05 Lymphocytes # ABG pH ABG pCO2 ABG pO2 ABG HCO3 ABG Total CO2 ABG O2 Saturation Sodium Potassium Chloride Carbon Dioxide Glucose POC Glucose (mg/dL) 149 H 163 H Hemoglobin A1c 6.2 H Phosphorus CK-MB (CK-2) Troponin I Total Protein Albumin Urine Protein Urine Mucus 01/14/18 01/14/18 01/14/18 05:28 05:42 06:40 Lymphocytes # ABG pH 7.14 L* ABG pCO2 92 H* ABG pO2 63 L ABG HCO3 31 H ABG Total CO2 34 H ABG O2 Saturation 85.7 L Sodium Potassium 5.6 H Chloride 95 L Carbon Dioxide 32 H Glucose 184 H POC Glucose (mg/dL) 173 H Hemoglobin A1c Phosphorus CK-MB (CK-2) Troponin I Total Protein Albumin Urine Protein Urine Mucus 01/14/18 01/14/18 01/14/18 06:40 06:40 07:24 Lymphocytes # 0.3 L ABG pH 7.20 L* ABG pCO2 75 H* ABG pO2 >400 H ABG HCO3 30 H ABG Total CO2 32 H ABG O2 Saturation 99.6 H Sodium Potassium Chloride Carbon Dioxide Glucose POC Glucose (mg/dL) Hemoglobin A1c Phosphorus 5.8 H CK-MB (CK-2) Troponin I Total Protein Albumin Urine Protein Urine Mucus 01/14/18 09:15 Lymphocytes # ABG pH ABG pCO2 ABG pO2 ABG HCO3 ABG Total CO2 ABG O2 Saturation Sodium Potassium Chloride Carbon Dioxide Glucose POC Glucose (mg/dL) Hemoglobin A1c Phosphorus CK-MB (CK-2) Troponin I Total Protein Albumin Urine Protein 1+ H Urine Mucus Rare H - Diagnostic Findings Chest x-ray: report reviewed, image reviewed (Findings as noted above) Assessment and Plan Assessment: Acute hypoxic respiratory failure with severe hypercapnia Acute asthma exacerbation Bilateral pneumonia likely community-acquired Severe COPD with acute exacerbation Mild hyperkalemia Severe hypoxia more than baseline likely related to above but that the etiologies like pulmonary embolism cannot be excluded we'll check a d-dimer if elevated consider doing a spiral CT scan of the chest Hypertension hypertensive cardiovascular disease Dyslipidemia Chronic neuropathy Plan: Gentle rehydration Broad-spectrum antibiotics will add Rocephin IV steroids Ventilator support setting adjusted DVT and peptic ulcer disease prophylaxis Continue home medications as tolerated Y NG tube Tube feeding Sputum for Gram stain and culture Further recommendations pending plan of care as per clinical response of the patient Overall will keep her rested on respirator for another 24-48 hours If d-dimer is elevated consider doing a spiral CT scan of the chest Repeat labs and x-ray and arterial blood gas tomorrow morning Time with Patient: Greater than 30
[2018-01-14] MEDS: CILOSTAZOL 100 MG TAB PO SCH ×2 (10:51→21:26)
[2018-01-14] MEDS ORDERED: MORPHINE SULFATE 2 MG/ML SYRINGE IVP PRN (11:18)
[2018-01-14] MEDS: cefTRIAXone IN SWFI 1,000 MG/10 ML SYRINGE IVP SCH (11:26)
[2018-01-14 11:50] LABS: Troponin I 1.38 ng/mL (0.000-0.034)
[2018-01-14 11:51] LABS: Creatine Kinase MB 42.9 ng/mL (0.0-2.4)
[2018-01-14 11:55] LABS: Glucose,Whole Blood 111 mg/dL (75-99)
[2018-01-14] MEDS ORDERED: RX INFO: IV CONTRAST WAS GIVEN 1 EACH MISC MISCELLANE PRN (12:15)
[2018-01-14] MEDS ORDERED: HEPARIN SODIUM,PORCINE 5,000 UNIT/ML 1 ML VIAL IV PRN (12:38)
[2018-01-14] MEDS ORDERED: HEPARIN SODIUM,PORCINE 5,000 UNIT/ML 1 ML VIAL IV ONE (12:38)
[2018-01-14] MEDS ORDERED: SODIUM POLYSTYRENE SULFONATE 15 GM/60 ML BOTTLE PO STA (12:45)
[2018-01-14 13:05] LABS: Prothrombin Time 9.5 sec (9.0-12.0)
[2018-01-14] MEDS: HEPARIN SODIUM,PORCINE/D5W PMX 25,000 UNIT in DEXTROSE/WATER 1 500ML.BAG IV SCH (13:47)
--- NOTE | 2018-01-14 14:33 | CT ---
EXAMINATION TYPE: CT chest angio for PE DATE OF EXAM: 01/14/2018 COMPARISON: NONE HISTORY: Increased shortness of breath CT DLP: 140.4 mGycm CONTRAST: CT chest with contrast and 3D reconstruction with MIP imaging is performed with IV Contrast, patient injected with 78 mL of Isovue 370. Contrast-enhanced CT of the chest was performed through the course of the pulmonary arteries with jeffrey g and mediastinal window settings submitted. 3D reconstruction with MIP imaging was also performed. PULMONARY ARTERIES: The pulmonary arteries and their major tributaries are patent. I do not see pancho dence for sizable filling defect to suggest pulmonary embolic process. LUNGS: Endotracheal tube is appropriately placed. NG tube is coursing into the stomach. Areas of patc hy infiltrate right upper lobe as well as lower lobes in addition small effusions. Mild compressive a telectasis. MEDIASTINUM: Thoracic aorta is of normal caliber,however, evaluation is limited given timing of the contrast bolus. If there is concern for thoracic aortic pathology consider KASSIE. Correlate clinicall y . The heart is not enlarged. No evidence for mediastinal mass. No mediastinal lymph nodes greater than 1cm. HILAR STRUCTURES: No evidence for mass. No hilar lymph nodes greater than 1 cm. UPPER ABDOMEN: No significant abnormality is seen. IMPRESSION: 1. No evidence for Pulmonary embolism at this time. 2. Scattered patchy infiltrates and small effusions.
--- NOTE | 2018-01-14 16:10 | HP ---
HISTORY AND PHYSICAL DATE OF ADMISSION: January 13, 2018. DATE OF SERVICE: January 14, 2018. PRESENTING COMPLAINT: Short of breath. HISTORY OF PRESENTING COMPLAINT: This is a 62 -year-old patient of Dr. Kelly whose chronic stable medical conditions include hypertension, hyperlipidemia, peripheral artery disease. The patient is long- standing smoker. Presents to the ER yesterday with worsening short of breath, not able to breathe. Symptoms getting worse for the last 3 days. History is obtained from the ER and supportive history from patient's daughter who is present in the room in the ICU. The patient is getting more short of breath and according to the floor I had order BiPAP and told her to get a hold of Dr. Blackman from Pulmonary. Subsequently, the patient decompensated and had to be intubated. Current in the ICU. REVIEW OF SYSTEMS: Cannot be obtained as patient is intubated. PAST MEDICAL HISTORY: COPD, nicotine dependence, hypertension, hyperlipidemia, peripheral arterial disease. PAST SURGICAL HISTORY: . HOME MEDICATIONS: 1. Zantac 150 mg p.o. b.i.d. 2. Multivitamin 2 tablets p.o. daily. 3. Claritin 10 mg p.o. daily. 4. Prinivil 10 mg p.o. daily. 5. Probiotic 2 capsules p.o. daily. 6. Atrovent 0.5 q.4 p.r.n. 7. Neurontin 300 mg p.o. 8. Flonase 1 spray each nostril b.i.d. p.r.n. 9. Pletal 100 mg p.o. b.i.d. 10.Symbicort 160/4.5, 2 puffs b.i.d. 11.Lipitor 40 mg q.h.s. 12.Ventolin 2.5 q.4h p.r.n. 13.Ventolin HFA 2 puffs q.6h p.r.n. ALLERGIES: Anoro Ellipta. PHYSICAL EXAMINATION: Vital signs on presentation, temperature 98.1, pulse 124, respiration 20, blood pressure 107/55, pulse ox 86% on 3 L. GENERAL APPEARANCE: Thin build, lying in bed, intubated. EYES: Pupils equal. Conjunctivae normal. HEENT external appearance of nose and ears normal. Oral cavity: Endotracheal tube in place. NECK: JVD unable to assess. Mass not palpable. RESPIRATORY: Effort increased. LUNGS: Poor air entry. CARDIOVASCULAR: 1st and 2nd sounds normal. No edema. ABDOMEN: Soft, nontender. Liver and spleen not palpable. LYMPHATICS: No lymph nodes palpable in the neck and axilla. PSYCHIATRY: Unable to assess. NEUROLOGICAL: Pupils equal. Plantars are downgoing. INVESTIGATIONS: White count 8.6, hemoglobin 12.6, potassium 4.5, BUN and creatinine is normal. Troponin 0.135, repeat 1.3. Initial blood gas showed a pH of 7.14 and a pCO2 of 92. Chest x-ray some venous prominence, questionable infiltrate. ASSESSMENT: 1. Acute severe chronic obstructive pulmonary disease exacerbation in a current smoker. 2. Acute hypoxic respiratory failure and acute hypercapnic respiratory failure from underlying chronic obstructive pulmonary disease. 3. Chronic nicotine dependence, patient is a cigarette smoker. 4. Acute hypoxic respiratory failure, worsening. Patient requiring ventilator assistance. 5. Essential hypertension. 6. Hyperlipidemia. 7. Peripheral arterial disease. 8. Acute respiratory acidosis. 9. Positive troponins could be from right ventricle strain from severe pulmonary hypertension or could be acute non-Q-wave myocardial infarction. We will await further input from Cardiology. PLAN: The patient is currently on the ventilator, on bronchodilators and antibiotics in the form of ceftriaxone and Zithromax. The patient is also put on IV heparin until PE is ruled out, appears to be less likely. Also patient will be given a nicotine patch. Patient also on propofol and IV steroids. Prognosis is guarded. Care was discussed with the daughter at the bedside. Copy to Dr. Kelly. Consultation to both Cardiology and Pulmonary is being done. MMODL / IJN: [id number] /
[2018-01-14] MEDS: NICOTINE 21MG/24HR PATCH TRANSDERM SCH (16:40)
--- NOTE | 2018-01-14 16:55 | CONS ---
CONSULTATION This is a 62-year-old lady with end-stage lung disease on home oxygen with chronic hypoxia. Apparently, she has been having increasing shortness of breath and was treated as an outpatient with steroids and came in with exacerbation of COPD. She was in the emergency room and she was intubated, placed on a ventilator and sent to the ICU. While in the ICU, her troponin levels were performed and there is a modest elevation of troponin and I was asked to see her in this regard for possibility of a non-ST elevation CA. Her initial D-dimer was unremarkable. A 2nd D-dimer is only mildly elevated and I do not believe this represents any strong suspicion for pulmonary embolism. The patient is intubated, not much history is available. The patient is a current smoker and smokes heavily. PAST MEDICAL HISTORY: She is known to have COPD, severe oxygen-dependent, also has some peripheral arterial disease. Patient has hyperlipidemia, hypertension, but no documented evidence of prior myocardial infarction that is available on reviewing the chart and patient is unable to give me proper history because she is intubated and there is no family available. MEDICATIONS: At home include: 1. Inhalers. 2. Lisinopril 10 mg daily. 3. Claritin. 4. Nasal spray. 5. Atorvastatin 40 mg daily. 6. Gabapentin. 7. Ranitidine. PHYSICAL EXAMINATION: Blood pressure is 96/60. Pulse rate is about 108 per minute, regular. HEENT: Unremarkable. Fundus was not examined by me. NECK: Supple. There is JVD of at least 1 cm. No carotid bruit. Heart exam reveals S1, S2 heard normally with a short systolic murmur. Lungs revealed bilateral ventilator related air entry. Abdomen is soft, nontender. Lower extremities reveal palpable pulses, but diminished. Central nervous system assessment was not performed. EKG revealed a sinus mechanism with IVCD, J-point elevation. No clear-cut evidence to suggest any ST-segment elevation. LAB DATA: Laboratory data reveals that her troponins were elevated up to 1.3. The initial troponin was 0.13. Repeat was 1.3. BNP was normal and potassium is elevated at 5.6. IMPRESSION: 1. Non ST-elevation myocardial infarction probably related to oxygen supply demand mismatch situation with hypoxemia. 2. Hypertension. 3. Hyperlipidemia. 4. End-stage lung disease with acute respiratory failure requiring intubation. RECOMMENDATIONS: I am recommending that we heparinize her with a low intensity protocol, give her Kayexalate for elevated potassium, check additional troponins and a BMP. An echocardiogram also has been performed and will be reviewed. Thank you very much for the consult. KAILASH / MYKEN: [id number] /
[2018-01-14 17:16] LABS: Glucose,Whole Blood 91 mg/dL (75-99)
[2018-01-14 20:07] LABS: Anion Gap 11 mmol/L; Blood Urea Nitrogen 20 mg/dL (7-17); Calcium 8.9 mg/dL (8.4-10.2); Carbon Dioxide 27 mmol/L (22-30); Chloride 100 mmol/L (98-107); Glucose 135 mg/dL (74-99); Potassium 4.7 mmol/L (3.5-5.1); Sodium 138 mmol/L (137-145)
[2018-01-14 20:53] LABS: Glucose,Whole Blood 149 mg/dL (75-99)
[2018-01-14] MEDS: LORazepam 2 MG/ML INJ IV PRN ×2 (20:55→23:58)
[2018-01-14] MEDS: ATORVASTATIN 40 MG TAB PO SCH (21:26)
[2018-01-14] MEDS: CHLORHEXIDINE GLUCONATE 15 ML CUP MUCOUS MEM SCH (21:26)
[2018-01-14] MEDS ORDERED: SODIUM CHLORIDE 0.9% 1,000 ML IV SCH (23:30)
[2018-01-15] MEDS: NOREPINEPHRIN 4 MG-0.9% NS PMX 4 MG/250 ML ML IV SCH ×2 (00:39→18:19)
[2018-01-15] MEDS: LORazepam 2 MG/ML INJ IV PRN (03:10)
[2018-01-15] MEDS ORDERED: IPRATROPIUM-ALBUTEROL 3 ML NEB ONE (03:40)
[2018-01-15 05:48] LABS: Magnesium 1.9 mg/dL (1.6-2.3); Phosphorus 2.7 mg/dL (2.5-4.5)
[2018-01-15] MEDS: IPRATROPIUM-ALBUTEROL 3 ML NEB INHALATION SCH ×6 (05:57→23:07)
[2018-01-15 05:59] LABS: Basophils % (A) 0 %; Eosinophils % (A) 0 %; HCT 34.6 % (34.0-46.0); HGB 11.2 gm/dL (11.4-16.0); Lymphocytes # (A) 0.8 k/uL (1.0-4.8); Lymphocytes % (A) 6 %; MCH 30.5 pg (25.0-35.0); MCHC 32.3 g/dL (31.0-37.0); MCV 94.5 fL (80.0-100.0); Mean Platelet Volume 7.9; Monocytes # (A) 0.5 k/uL (0-1.0); Monocytes % (A) 4 %; Neutrophils # (A) 11.7 k/uL (1.3-7.7); Neutrophils % (A) 89 %; Platelet Count 298 k/uL (150-450); RBC 3.66 m/uL (3.80-5.40); RDW 13.3 % (11.5-15.5); WBC 13.1 k/uL (3.8-10.6)
[2018-01-15] MEDS: PROPOFOL 1,000 MG in EMPTY BAG 1 BAG IV SCH (06:07)
[2018-01-15] MEDS: SODIUM CHLORIDE 0.9% 1,000 ML IV SCH ×4 (06:09→18:21)
[2018-01-15] MEDS: methylPREDNISolone SOD SUCCI 125 MG/2 ML VIAL IV SCH ×4 (06:09→23:09)
[2018-01-15 06:28] LABS: Anion Gap 10 mmol/L; Blood Urea Nitrogen 23 mg/dL (7-17); Calcium 8.3 mg/dL (8.4-10.2); Carbon Dioxide 26 mmol/L (22-30); Chloride 103 mmol/L (98-107); Glucose 171 mg/dL (74-99); Potassium 4.2 mmol/L (3.5-5.1); Sodium 139 mmol/L (137-145)
[2018-01-15 06:28] LABS: ABG HCO3 29 mmol/L (21-25); ABG PCO2 58 mmHg (35-45); ABG PH 7.32 (7.35-7.45); ABG PO2 87 mmHg (83-108)
[2018-01-15] MEDS ORDERED: Magnesium Replacement Protocol 1 EACH MISC MISCELLANE PRN (06:29)
[2018-01-15] MEDS: INSULIN ASPART 100 UNIT/ML 1 ML 10 ML VIAL SQ SCH ×4 (07:05→23:11)
[2018-01-15] MEDS: CHLORHEXIDINE GLUCONATE 15 ML CUP MUCOUS MEM SCH ×2 (07:33→20:48)
[2018-01-15] MEDS: GABAPENTIN 300 MG CAP PO SCH ×3 (07:33→21:30)
[2018-01-15] MEDS: AZITHROMYCIN 500 MG TAB PO SCH (07:33)
[2018-01-15] MEDS: LACTOBACILLUS ACIDOPH & BULGAR 1 EACH PACKET PO SCH (07:34)
[2018-01-15] MEDS: LISINOPRIL 10 MG TAB PO SCH (07:34)
[2018-01-15] MEDS: CILOSTAZOL 100 MG TAB PO SCH ×2 (07:34→20:47)
[2018-01-15] MEDS: LORATADINE 10 MG TAB PO SCH (07:34)
[2018-01-15] MEDS: NICOTINE 21MG/24HR PATCH TRANSDERM SCH (07:35)
[2018-01-15] MEDS: MULTIVITAMINS, THERA 1 EACH TAB PO SCH (07:35)
[2018-01-15] MEDS: BUDESONIDE 1 MG/2 ML NEBU INHALATION SCH ×2 (07:55→19:13)
--- NOTE | 2018-01-15 08:37 | ECHOF ---
Referral Reason:lv function MEASUREMENTS -------- HEIGHT: 152.4 cm WEIGHT: 41.7 kg BP: 89/54 RVIDd: 2.8 cm (< 3.3) IVSd: 1.2 cm (0.6 - 1.1) LVIDd: 4.1 cm (3.9 - 5.3) LVPWd: 1.2 cm (0.6 - 1.1) IVSs: 1.3 cm LVIDs: 3.2 cm LVPWs: 1.4 cm LAESV Index (A-L): 22.46 ml/m Ao Diam: 2.9 cm (2.0 - 3.7) AV Cusp: 1.2 cm (1.5 - 2.6) LA Diam: 2.4 cm (2.7 - 3.8) MV E Gael: 1.82 m/s MV DecT: 174 ms MV A Gael: 0.01 m/s MV E/A Ratio: 325.47 RAP: 15.00 mmHg RVSP: 19.50 mmHg FINDINGS -------- Resting tachycardia (HR>100bpm). This was a technically adequate study. The left ventricular size is normal. There is mild concentric left ventricular hypertrophy. Overa ll left ventricular systolic function is moderate-severely impaired with, an EF between 30 - 35 %. The right ventricle is normal in size and function. Normal LA size by volume 22+/-6 ml/m2. The right atrium is normal in size. There is mild to moderate aortic valve sclerosis. There is no evidence of aortic regurgitation. T here is no evidence of aortic stenosis. The mitral valve leaflets are moderately thickened. Moderate mitral annular calcification present. Tpvs-ma-hcjkkftl mitral regurgitation is present. Mild tricuspid regurgitation present. Right ventricular systolic pressure is normal at < 35 mmHg. There is no evidence of pulmonary hypertension. Trace/mild (physiologic) pulmonic regurgitation. The aortic root size is normal. The inferior vena cava is dilated with no significant inspiratory collapse which is consistent estima gaviota right atrial pressure of >20 mmHg. There is a small, generalized pericardial effusion present. CONCLUSIONS -------- 1. Resting tachycardia (HR>100bpm). 2. This was a technically adequate study. 3. The left ventricular size is normal. 4. There is mild concentric left ventricular hypertrophy. 5. Overall left ventricular systolic function is moderate-severely impaired with, an EF between 30 - 35 %. 6. Normal LA size by volume 22+/-6 ml/m2. 7. There is mild to moderate aortic valve sclerosis. 8. The mitral valve leaflets are moderately thickened. 9. Moderate mitral annular calcification present. 10. Mesm-so-xhboocjw mitral regurgitation is present. 11. Mild tricuspid regurgitation present. 12. Right ventricular systolic pressure is normal at < 35 mmHg. 13. Trace/mild (physiologic) pulmonic regurgitation. 14. The aortic root size is normal. 15. The inferior vena cava is dilated with no significant inspiratory collapse which is consistent es timated right atrial pressure of >20 mmHg. 16. There is a small, generalized pericardial effusion present. DRIER: Noel Hernandez RDCS
[2018-01-15] MEDS: MAGNESIUM SULFATE-D5W PMX 1 GM in DEXTROSE/WATER 1 100ML.BAG IVPB SCH ×2 (08:43→11:13)
--- NOTE | 2018-01-15 10:20 | XR ---
EXAMINATION TYPE: XR chest 1V portable DATE OF EXAM: 01/15/2018 COMPARISON: 01/14/2018 INDICATION: Difficulty breathing TECHNIQUE: Single frontal view of the chest is obtained. FINDINGS: The heart size is normal. The pulmonary vasculature is prominent. There is some scattered increased lung markings greater on the right. Endotracheal tube is present with the tip above the joann. Nasogastric tube transverses the thorax w ith the tip in the left upper quadrant of the abdomen. EKG leads overlie the chest. IMPRESSION: 1. Scattered increased lung markings may be related to volume overload. Findings have slight improvem ent from comparison. 2. Lines and catheters stable in position.
[2018-01-15] MEDS ORDERED: MORPHINE ORAL SOLN 10 MG/5 ML CUP PO PRN (10:42)
[2018-01-15] MEDS: cefTRIAXone IN SWFI 1,000 MG/10 ML SYRINGE IVP SCH (11:12)
[2018-01-15 12:15] LABS: Glucose,Whole Blood 170 mg/dL (75-99)
--- NOTE | 2018-01-15 14:12 | P.PN ---
Subjective Progress Note Date: 01/15/18 (Critical care time 45 minutes) Principal diagnosis: Bilateral pneumonia related to Streptococcus pneumonia, acute hypoxic and hypercapnic history failure, acute non-ST segment elevated MA, cardiomyopathy likely ischemic with acute systolic heart failure, severe COPD baseline oxygen dependent 24 7, chronic persistent severe asthma 01/15/2018, patient seen and evaluated in evaluated and examined during the rounds, patient has been admitted to hospital with acute hypoxic respiratory failure with severe wheezing shortness of breath patient had failed outpatient therapy, patient has been found to have pneumococcal pneumonia in addition to that has a likely acute non-ST segment elevated MA has been found to have severe systolic heart failure ejection fraction only 35%, a spiral computed tomography scan of his chest was negative for pulmonary embolism Ammann computed tomography scan, echocardiogram and radiographic studies reviewed, currently patient is on full ventilator support with assist control rate of 20 breathing about 20 tidal volume of 350, PEEP of 5 and 50% oxygen arterial blood gas on this setting fairly stable severity of hypercapnia and severe respiratory acidosis continued to improve, patient has been slightly on the hypovolemic side is still getting fluid resuscitation does require a small dose of levo fed drip to 6 mics some of it likely related to vasodilator effect of propofol as well patient however does require significant amount of propofol otherwise because extremely anxious and agitated started bucking the vent thick white tenacious secretions are present, patient has been tolerating tube feed very well, cardiovascular services following this patient the recommended continue IV heparin for now, patient is being started on aspirin however is not a candidate for beta blockers and/or or CALLI inhibitor's given significant hypotension, we'll see if patient can be weaned off of levo fed drip if not then will need a central line Ms. 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 patient has chronic hypoxic respirator failure on supplemental oxygen with 2 L at home 24 7, patient also has a component of chronic persistent severe asthma has been on breathing treatments and steroids intermittently patient recently had a acute exacerbation for which she was treated on oral antibiotics and oral prednisone her outpatient setting however did not improve patient was in fact seen yesterday in the office her saturation was only 73% on 3 L oxygen she was extremely short of breath tachypneic and tachycardic heart rate is 120 to 130 patient the insist on not going to hospital , after extensive decision patient eventually agreed to go to the emergency department care plan discussed with the emergency room physician and patient was sent to the ER immediately, patient was admitted on the floor where she was tachypneic tachycardic and severely hypoxic and has audible wheezing poor air entry and chest tightness was present eventually was transferred to the ICU and intubated as stat arterial blood gas revealed worsening hypercapnia and hypoxia , patient seen eval reexamined care plan discussed with the family present at bedside currently patient is on full ventilator support sedated with propofol 50 mics at a lesser dose patient was agitated anxious, when setting include assist control rate of 20 breathing at a rate of 20 as well, tidal volume while 350, PEEP of 5, and FiO2 has been titrated down to 40%, labs and x-ray reviewed some improvement in acute respiratory acidosis noted with assisted ventilation. Peak airway pressure on the high 20s heart rate remains 110-120, All 3 chest x-ray performed from the emergency department earlier this morning pre-and post intubation reviewed initial x-ray right lower lobe infiltrate cannot be excluded, repeat chest x-ray revealed bilateral infiltrate suggestive of bilateral pneumonia, postintubation x-ray reviewed ET tube and NG tube are stable, bilateral airspace disease noted, sputum has been sent for culture, one thing is of concern patient is more hypoxic than usual, other etiologies like pulmonary embolism cannot be excluded we will check a d-dimer if a high then consider doing a spiral CT scan of the chest Objective - Vital Signs Vital signs: Vital Signs Temp 99.1 F 01/15/18 11:00 Pulse 107 H 01/15/18 11:41 Resp 21 01/15/18 11:00 BP 120/59 01/15/18 11:00 Pulse Ox 94 L 01/15/18 11:00 Intake & Output 01/14/18 01/15/18 01/15/18 18:59 06:59 18:59 Intake Total 4851.890 9884.439 824.6 Output Total 1097 415 250 Balance 830.715 7130.439 574.6 Weight 44.2 kg Intake: IV 1026.6 2250 750 Propofol 1,000 mg In 26.6 Empty Bag 1 bag @ Titrate IV .Q0M ALESHA Rx#: [id number] Sodium Chloride 0.9% 1, 1000 500 000 ml @ 100 mls/hr IV . Q10H ALESHA Rx#:[id number] Sodium Chloride 0.9% 1, 750 750 000 ml @ 150 mls/hr IV . Q6H40M ALESHA Rx#:[id number] Sodium Chloride 0.9% 1, 1000 000 ml @ 500 mls/hr IV . Q2H ALESHA Rx#:[id number] Intake, IV Titration 158.093 390.439 34.6 Amount Heparin Sodium,Porcine/ 189.126 D5w Pmx 25,000 unit In Dextrose/Water 1 500ml. bag @ 12 UNITS/KG/HR 10. 08 mls/hr IV .Q24H ALESHA Rx #:[id number] Norepinephrin 4 mg-0.9% 101.313 Ns Pmx 4 mg In 250 ml @ Titrate IV .Q0M ALESHA Rx#: [id number] Propofol 1,000 mg In 58.093 100.000 34.6 Empty Bag 1 bag @ Titrate IV .Q0M ALESHA Rx#: [id number] Sodium Chloride 0.9% 1, 100 000 ml @ 100 mls/hr IV . Q10H ALESHA Rx#:[id number] Tube Feeding 20 250 40 Other 170 60 Output: Urine 1097 415 250 Other: Voiding Method Indwelling Catheter Indwelling Catheter # Voids 1 # Bowel Movements 0 0 - Exam Patient is intubated on full ventilator support sedated with propofol drip, gets anxious and agitated with significant respiratory difficulties once a sedation tapers off - Constitutional General appearance: mild distress, thin - EENT Eyes: PERRLA, normal appearance Ears: bilateral: normal - Neck Neck: normal ROM Carotids: bilateral: upstroke normal, bruit absent Thyroid: bilateral: normal size - Respiratory Respiratory: bilateral: diminished, rhonchi (Noted during both inspiratory and expiratory phase), wheezing (Noted both during inspiratory expiratory phase) - Cardiovascular Heart sounds: normal: S1, S2 - Gastrointestinal General gastrointestinal: decreased bowel sounds, soft - Integumentary Integumentary: decreased turgor - Neurologic Patient intubated unable to do a detailed exam but does follow commands moving all 4 extremity Neurologic: CNII-XII intact - Musculoskeletal Patient intubated unable to do a detailed exam Musculoskeletal: generalized weakness, strength equal bilaterally - Psychiatric Patient intubated unable to do a detailed exam - Labs CBC & Chem 7: 01/15/18 04:40 01/15/18 04:40 Labs: Abnormal Lab Results - Last 24 Hours (Table) 01/14/18 01/14/18 01/14/18 Range/Units 19:31 19:31 19:31 WBC (3.8-10.6) k/uL RBC (3.80-5.40) m/uL Hgb (11.4-16.0) gm/dL Neutrophils # (1.3-7.7) k/uL Lymphocytes # (1.0-4.8) k/uL APTT 32.8 H (22.0-30.0) sec ABG pH (7.35-7.45) ABG pCO2 (35-45) mmHg ABG HCO3 (21-25) mmol/L BUN 20 H (7-17) mg/dL Creatinine (0.52-1.04) mg/dL Glucose 135 H (74-99) mg/dL POC Glucose (mg/dL) (75-99) mg/dL Calcium (8.4-10.2) mg/dL Troponin I 4.930 H* (0.000-0.034) ng/mL 01/14/18 01/15/18 01/15/18 Range/Units 20:50 04:15 04:40 WBC 13.1 H (3.8-10.6) k/uL RBC 3.66 L (3.80-5.40) m/uL Hgb 11.2 L (11.4-16.0) gm/dL Neutrophils # 11.7 H (1.3-7.7) k/uL Lymphocytes # 0.8 L (1.0-4.8) k/uL APTT (22.0-30.0) sec ABG pH 7.32 L (7.35-7.45) ABG pCO2 58 H (35-45) mmHg ABG HCO3 29 H (21-25) mmol/L BUN (7-17) mg/dL Creatinine (0.52-1.04) mg/dL Glucose (74-99) mg/dL POC Glucose (mg/dL) 149 H (75-99) mg/dL Calcium (8.4-10.2) mg/dL Troponin I (0.000-0.034) ng/mL 01/15/18 01/15/18 01/15/18 Range/Units 04:40 04:40 04:40 WBC (3.8-10.6) k/uL RBC (3.80-5.40) m/uL Hgb (11.4-16.0) gm/dL Neutrophils # (1.3-7.7) k/uL Lymphocytes # (1.0-4.8) k/uL APTT 33.6 H (22.0-30.0) sec ABG pH (7.35-7.45) ABG pCO2 (35-45) mmHg ABG HCO3 (21-25) mmol/L BUN 23 H (7-17) mg/dL Creatinine 0.51 L (0.52-1.04) mg/dL Glucose 171 H (74-99) mg/dL POC Glucose (mg/dL) (75-99) mg/dL Calcium 8.3 L (8.4-10.2) mg/dL Troponin I 3.980 H* (0.000-0.034) ng/mL 01/15/18 01/15/18 Range/Units 12:00 12:14 WBC (3.8-10.6) k/uL RBC (3.80-5.40) m/uL Hgb (11.4-16.0) gm/dL Neutrophils # (1.3-7.7) k/uL Lymphocytes # (1.0-4.8) k/uL APTT 35.0 H (22.0-30.0) sec ABG pH (7.35-7.45) ABG pCO2 (35-45) mmHg ABG HCO3 (21-25) mmol/L BUN (7-17) mg/dL Creatinine (0.52-1.04) mg/dL Glucose (74-99) mg/dL POC Glucose (mg/dL) 170 H (75-99) mg/dL Calcium (8.4-10.2) mg/dL Troponin I (0.000-0.034) ng/mL Microbiology - Last 24 Hours (Table) 01/14/18 05:30 Gram Stain - Preliminary Sputum Sputum Culture - Preliminary Streptococcus pneumoniae - Imaging and Cardiology Chest x-ray: report reviewed, image reviewed (Findings as noted above) CT scan - chest: report reviewed, image reviewed Echocardiogram results and reports reviewed Assessment and Plan Assessment: Pneumococcal pneumonia with sepsis and hypertension Acute systolic heart failure Non-ST segment elevated MA Cardiomyopathy with ejection fraction of 35% acute versus chronic Acute hypoxic respiratory failure with severe hypercapnia Acute asthma exacerbation Severe COPD with acute exacerbation Mild hyperkalemia Hypertension hypertensive cardiovascular disease Dyslipidemia Chronic neuropathy Plan: Gentle rehydration Add aspirin Cannot do beta blockers and CALLI inhibitor's given presence of hypotension Vasopressors as tolerated Broad-spectrum antibiotics with Zithromax and Rocephin IV steroids Ventilator support setting adjusted DVT and peptic ulcer disease prophylaxis Continue home medications as tolerated Y NG tube Tube feeding Sputum for Gram stain and culture, results reviewed Further recommendations pending plan of care as per clinical response of the patient Overall will keep her on respirator for another 24-48 hours, start weaning from tomorrow morning will try CPAP and pressure support Repeat labs and x-ray and arterial blood gas tomorrow morning Critical care time spent 45 minutes
[2018-01-15] MEDS: HEPARIN SODIUM,PORCINE/D5W PMX 25,000 UNIT in DEXTROSE/WATER 1 500ML.BAG IV SCH (14:48)
--- NOTE | 2018-01-15 16:53 | PN ---
PROGRESS NOTE DATE OF SERVICE: 01/15/2018. HISTORY: Ms. Hooker is a lady with respiratory failure, who is doing better compared to yesterday. Her troponin profile suggests that she has had what seems to be a oxygen mismatch type myocardial injury. She is hemodynamically not so stable. She is on 8 mics of Levophed. She has a fairly reasonable urine output. Vital signs are stable with Levophed. S1 and S2 heard normally. Short systolic murmur noted. Lungs reveal diminished air entry. Abdomen and lower extremity exam unchanged. Patient is still on ventilator support. Her echocardiogram revealed global decrease in contractility, more so in the inferior wall. She probably has a combination of ischemic and nonischemic cardiomyopathy. PLAN: Continue current medications. We will continue IV heparin for one more day and see how she does. PHYSICAL EXAM: There are no other new significant findings. MMODL / IJN: [id number] /
[2018-01-15 18:10] LABS: Glucose,Whole Blood 154 mg/dL (75-99)
[2018-01-15] MEDS: ATORVASTATIN 40 MG TAB PO SCH (20:48)
[2018-01-15 23:08] LABS: Glucose,Whole Blood 180 mg/dL (75-99)
[2018-01-16] MEDS: PROPOFOL 1,000 MG in EMPTY BAG 1 BAG IV SCH ×3 (00:11→18:50)
[2018-01-16] MEDS: IPRATROPIUM-ALBUTEROL 3 ML NEB INHALATION SCH ×6 (03:35→23:06)
[2018-01-16] MEDS: NOREPINEPHRIN 4 MG-0.9% NS PMX 4 MG/250 ML ML IV SCH (03:40)
[2018-01-16] MEDS: LORazepam 2 MG/ML INJ IV PRN (03:45)
[2018-01-16] MEDS: SODIUM CHLORIDE 0.9% 1,000 ML IV SCH ×3 (03:45→18:51)
[2018-01-16 04:55] LABS: Basophils % (A) 0 %; Eosinophils % (A) 0 %; HCT 34.9 % (34.0-46.0); Lymphocytes # (A) 0.7 k/uL (1.0-4.8); Lymphocytes % (A) 6 %; MCH 29.5 pg (25.0-35.0); MCHC 31.5 g/dL (31.0-37.0); MCV 93.7 fL (80.0-100.0); Mean Platelet Volume 7.6; Monocytes # (A) 0.8 k/uL (0-1.0); Monocytes % (A) 7 %; Neutrophils # (A) 9.7 k/uL (1.3-7.7); Neutrophils % (A) 84 %; Platelet Count 344 k/uL (150-450); RBC 3.72 m/uL (3.80-5.40); RDW 13.5 % (11.5-15.5); WBC 11.6 k/uL (3.8-10.6)
[2018-01-16 05:07] LABS: ABG Base Excess 5.4 mmol/L; ABG HCO3 32 mmol/L (21-25); ABG Oxygen Saturation 97.4 % (94-97); ABG PCO2 61 mmHg (35-45); ABG PH 7.32 (7.35-7.45); ABG PO2 106 mmHg (83-108); ABG TCO2 33 mmol/L (19-24)
[2018-01-16 05:10] LABS: Anion Gap 6 mmol/L; Blood Urea Nitrogen 26 mg/dL (7-17); Calcium 8.5 mg/dL (8.4-10.2); Carbon Dioxide 27 mmol/L (22-30); Chloride 106 mmol/L (98-107); Glucose 160 mg/dL (74-99); Magnesium 2.4 mg/dL (1.6-2.3); Phosphorus 2.4 mg/dL (2.5-4.5); Potassium 3.8 mmol/L (3.5-5.1); Sodium 139 mmol/L (137-145)
[2018-01-16 05:30] LABS: Glucose,Whole Blood 176 mg/dL (75-99)
[2018-01-16] MEDS: INSULIN ASPART 100 UNIT/ML 1 ML 10 ML VIAL SQ SCH ×3 (05:35→18:19)
[2018-01-16] MEDS: methylPREDNISolone SOD SUCCI 125 MG/2 ML VIAL IV SCH ×3 (05:35→18:13)
[2018-01-16] MEDS ORDERED: Phosphorus Replacement Protoco 1 EACH MISC MISCELLANE PRN (05:37)
[2018-01-16] MEDS ORDERED: POTASSIUM PHOSPHATE 10 MMOL in SODIUM CHLORIDE 0.9% 250 ML IV ONE (06:00)
[2018-01-16] MEDS: BUDESONIDE 1 MG/2 ML NEBU INHALATION SCH ×2 (08:27→19:13)
[2018-01-16] MEDS: CHLORHEXIDINE GLUCONATE 15 ML CUP MUCOUS MEM SCH ×2 (08:49→21:33)
--- NOTE | 2018-01-16 08:49 | P.PN ---
Subjective Progress Note Date: 01/16/18 (Critical care time 45 minutes) Principal diagnosis: Bilateral pneumonia related to Streptococcus pneumonia, acute hypoxic and hypercapnic history failure, acute non-ST segment elevated OR, cardiomyopathy likely ischemic with acute systolic heart failure, severe COPD baseline oxygen dependent 24 7, chronic persistent severe asthma 01/16/2018, patient seen and evaluated examined in the ICU her propofol drip is being tapered down as she is waking up I noted slightly more wheezing than usual , clear respiratory secretions are present in the ET tube patient has paroxysmal cough, patient's current ventilator setting includes a assist control rate of 20, breathing about 24-25, tidal volume is 350, PEEP is 5, FiO2 is 40%. Chest x-ray reviewed improvement in infiltrate and bilateral interstitial edema is noted, able ET tube, patient remains on a levo fed drip which is down from 8 mics to 6 mics there appears to be a relationship with propofol as her blood pressure does improve when she is off of propofol, noted cardiology recommendation patient has likely non-ST segment elevated OR with possible presence of ischemic cardiomyopathy and ejection fraction is only 35%, patient to be evaluated with cardiac cath and angiogram once weaned and extubated as per cardiology. Labs reviewed medications reviewed, patient is being placed on CPAP of 5 pressure support of 5 and propofol is being discontinued if tolerated well and possible extubation however patient continued to have issues with significant wheezing and inability to wean we'll leave him her on respirator in that case patient probably will require a central line as she continued to require levo fed drip 01/15/2018, patient seen and evaluated in evaluated and examined during the rounds, patient has been admitted to hospital with acute hypoxic respiratory failure with severe wheezing shortness of breath patient had failed outpatient therapy, patient has been found to have pneumococcal pneumonia in addition to that has a likely acute non-ST segment elevated OR has been found to have severe systolic heart failure ejection fraction only 35%, a spiral computed tomography scan of his chest was negative for pulmonary embolism Ammann computed tomography scan, echocardiogram and radiographic studies reviewed, currently patient is on full ventilator support with assist control rate of 20 breathing about 20 tidal volume of 350, PEEP of 5 and 50% oxygen arterial blood gas on this setting fairly stable severity of hypercapnia and severe respiratory acidosis continued to improve, patient has been slightly on the hypovolemic side is still getting fluid resuscitation does require a small dose of levo fed drip to 6 mics some of it likely related to vasodilator effect of propofol as well patient however does require significant amount of propofol otherwise because extremely anxious and agitated started bucking the vent thick white tenacious secretions are present, patient has been tolerating tube feed very well, cardiovascular services following this patient the recommended continue IV heparin for now, patient is being started on aspirin however is not a candidate for beta blockers and/or or CALLI inhibitor's given significant hypotension, we'll see if patient can be weaned off of levo fed drip if not then will need a central line Ms. 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 patient has chronic hypoxic respirator failure on supplemental oxygen with 2 L at home 24 7, patient also has a component of chronic persistent severe asthma has been on breathing treatments and steroids intermittently patient recently had a acute exacerbation for which she was treated on oral antibiotics and oral prednisone her outpatient setting however did not improve patient was in fact seen yesterday in the office her saturation was only 73% on 3 L oxygen she was extremely short of breath tachypneic and tachycardic heart rate is 120 to 130 patient the insist on not going to hospital , after extensive decision patient eventually agreed to go to the emergency department care plan discussed with the emergency room physician and patient was sent to the ER immediately, patient was admitted on the floor where she was tachypneic tachycardic and severely hypoxic and has audible wheezing poor air entry and chest tightness was present eventually was transferred to the ICU and intubated as stat arterial blood gas revealed worsening hypercapnia and hypoxia , patient seen eval reexamined care plan discussed with the family present at bedside currently patient is on full ventilator support sedated with propofol 50 mics at a lesser dose patient was agitated anxious, when setting include assist control rate of 20 breathing at a rate of 20 as well, tidal volume while 350, PEEP of 5, and FiO2 has been titrated down to 40%, labs and x-ray reviewed some improvement in acute respiratory acidosis noted with assisted ventilation. Peak airway pressure on the high 20s heart rate remains 110-120, All 3 chest x-ray performed from the emergency department earlier this morning pre-and post intubation reviewed initial x-ray right lower lobe infiltrate cannot be excluded, repeat chest x-ray revealed bilateral infiltrate suggestive of bilateral pneumonia, postintubation x-ray reviewed ET tube and NG tube are stable, bilateral airspace disease noted, sputum has been sent for culture, one thing is of concern patient is more hypoxic than usual, other etiologies like pulmonary embolism cannot be excluded we will check a d-dimer if a high then consider doing a spiral CT scan of the chest Objective - Vital Signs Vital signs: Vital Signs Temp 98.9 F 01/16/18 08:00 Pulse 103 H 01/16/18 08:29 Resp 22 01/16/18 08:00 BP 120/68 01/16/18 08:00 Pulse Ox 98 01/16/18 08:00 Intake & Output 01/15/18 01/16/18 01/16/18 18:59 06:59 18:59 Intake Total 2374.831 1738.683 439.245 Output Total 545 455 75 Balance 0282.717 2843.683 364.245 Intake: IV 1800 450 20 Sodium Chloride 0.9% 1, 1800 450 20 000 ml @ 150 mls/hr IV . Q6H40M [facility] Rx#:[id number] Intake, IV Titration 314.831 758.683 309.245 Amount Heparin Sodium,Porcine/ 131.544 271.068 D5w Pmx 25,000 unit In Dextrose/Water 1 500ml. bag @ 12 UNITS/KG/HR 10. 08 mls/hr IV .Q24H [facility] Rx #:[id number] Norepinephrin 4 mg-0.9% 148.687 250 120.5 Ns Pmx 4 mg In 250 ml @ Titrate IV .Q0M [facility] Rx#: [id number] Potassium Phosphate 10 125 125 mmol In Sodium Chloride 0 .9% 250 ml @ 125 mls/hr IV ONCE ONE Rx#:[id number] Propofol 1,000 mg In 34.6 112.615 63.745 Empty Bag 1 bag @ Titrate IV .Q0M [facility] Rx#: [id number] Tube Feeding 260 440 80 Other 90 30 Output: Urine 545 455 75 Other: Voiding Method Indwelling Catheter Indwelling Catheter # Voids 1 # Bowel Movements 0 0 - Exam Patient is intubated on full ventilator support sedated with propofol drip, gets anxious and agitated with significant respiratory difficulties once a sedation tapers off - Constitutional General appearance: mild distress, thin - EENT Eyes: PERRLA, normal appearance Ears: bilateral: normal - Neck Neck: normal ROM Carotids: bilateral: upstroke normal, bruit absent Thyroid: bilateral: normal size - Respiratory Respiratory: bilateral: diminished, rhonchi (Noted during both inspiratory and expiratory phase), wheezing (Noted both during inspiratory expiratory phase) - Cardiovascular Heart sounds: normal: S1, S2 - Gastrointestinal General gastrointestinal: decreased bowel sounds, soft - Integumentary Integumentary: decreased turgor - Neurologic Patient intubated unable to do a detailed exam but does follow commands moving all 4 extremity Neurologic: CNII-XII intact - Musculoskeletal Patient intubated unable to do a detailed exam Musculoskeletal: generalized weakness, strength equal bilaterally - Psychiatric Patient intubated unable to do a detailed exam - Labs CBC & Chem 7: 01/16/18 04:22 01/16/18 04:21 Labs: Abnormal Lab Results - Last 24 Hours (Table) 01/15/18 01/15/18 01/15/18 Range/Units 12:00 12:14 18:08 WBC (3.8-10.6) k/uL RBC (3.80-5.40) m/uL Hgb (11.4-16.0) gm/dL Neutrophils # (1.3-7.7) k/uL Lymphocytes # (1.0-4.8) k/uL APTT 35.0 H (22.0-30.0) sec ABG pH (7.35-7.45) ABG pCO2 (35-45) mmHg ABG HCO3 (21-25) mmol/L ABG Total CO2 (19-24) mmol/L ABG O2 Saturation (94-97) % BUN (7-17) mg/dL Creatinine (0.52-1.04) mg/dL Glucose (74-99) mg/dL POC Glucose (mg/dL) 170 H 154 H (75-99) mg/dL Phosphorus (2.5-4.5) mg/dL Magnesium (1.6-2.3) mg/dL 01/15/18 01/15/18 01/16/18 Range/Units 20:41 23:06 04:21 WBC (3.8-10.6) k/uL RBC (3.80-5.40) m/uL Hgb (11.4-16.0) gm/dL Neutrophils # (1.3-7.7) k/uL Lymphocytes # (1.0-4.8) k/uL APTT 48.7 H (22.0-30.0) sec ABG pH (7.35-7.45) ABG pCO2 (35-45) mmHg ABG HCO3 (21-25) mmol/L ABG Total CO2 (19-24) mmol/L ABG O2 Saturation (94-97) % BUN 26 H (7-17) mg/dL Creatinine 0.46 L (0.52-1.04) mg/dL Glucose 160 H (74-99) mg/dL POC Glucose (mg/dL) 180 H (75-99) mg/dL Phosphorus 2.4 L (2.5-4.5) mg/dL Magnesium 2.4 H (1.6-2.3) mg/dL 01/16/18 01/16/18 01/16/18 Range/Units 04:22 04:22 05:06 WBC 11.6 H (3.8-10.6) k/uL RBC 3.72 L (3.80-5.40) m/uL Hgb 11.0 L (11.4-16.0) gm/dL Neutrophils # 9.7 H (1.3-7.7) k/uL Lymphocytes # 0.7 L (1.0-4.8) k/uL APTT 37.9 H (22.0-30.0) sec ABG pH 7.32 L (7.35-7.45) ABG pCO2 61 H (35-45) mmHg ABG HCO3 32 H (21-25) mmol/L ABG Total CO2 33 H (19-24) mmol/L ABG O2 Saturation 97.4 H (94-97) % BUN (7-17) mg/dL Creatinine (0.52-1.04) mg/dL Glucose (74-99) mg/dL POC Glucose (mg/dL) (75-99) mg/dL Phosphorus (2.5-4.5) mg/dL Magnesium (1.6-2.3) mg/dL 01/16/18 Range/Units 05:27 WBC (3.8-10.6) k/uL RBC (3.80-5.40) m/uL Hgb (11.4-16.0) gm/dL Neutrophils # (1.3-7.7) k/uL Lymphocytes # (1.0-4.8) k/uL APTT (22.0-30.0) sec ABG pH (7.35-7.45) ABG pCO2 (35-45) mmHg ABG HCO3 (21-25) mmol/L ABG Total CO2 (19-24) mmol/L ABG O2 Saturation (94-97) % BUN (7-17) mg/dL Creatinine (0.52-1.04) mg/dL Glucose (74-99) mg/dL POC Glucose (mg/dL) 176 H (75-99) mg/dL Phosphorus (2.5-4.5) mg/dL Magnesium (1.6-2.3) mg/dL Microbiology - Last 24 Hours (Table) 01/14/18 05:30 Gram Stain - Preliminary Sputum Sputum Culture - Preliminary Streptococcus pneumoniae Assessment and Plan Assessment: Pneumococcal pneumonia with sepsis and hypotension Acute systolic heart failure Non-ST segment elevated OR Cardiomyopathy with ejection fraction of 35% acute versus chronic, ischemic likely as there is a significant inferior wall hypokinesia is present Acute hypoxic respiratory failure with severe hypercapnia Acute asthma exacerbation Severe COPD with acute exacerbation Mild hyperkalemia Hypertension hypertensive cardiovascular disease Dyslipidemia Chronic neuropathy Plan: Gentle rehydration Add aspirin Cannot do beta blockers and CALLI inhibitor's given presence of hypotension Vasopressors as tolerated Broad-spectrum antibiotics with Zithromax and Rocephin IV steroids Ventilator support setting adjusted, initiate patient on weaning trial CPAP 5 pressure support of 5 and blood gas after half an hour DVT and peptic ulcer disease prophylaxis Continue home medications as tolerated through NG tube Tube feeding Sputum for Gram stain and culture, results reviewed Further recommendations pending plan of care as per clinical response of the patient Overall will keep her on respirator for another 24-48 hours, start weaning from tomorrow morning will try CPAP and pressure support Repeat labs and x-ray and arterial blood gas tomorrow morning Critical care time spent 45 minutes Time with Patient: Greater than 30
[2018-01-16] MEDS: AZITHROMYCIN 500 MG TAB PO SCH (08:50)
[2018-01-16] MEDS: CILOSTAZOL 100 MG TAB PO SCH ×2 (08:50→21:33)
[2018-01-16] MEDS: ASPIRIN 325 MG TAB PO SCH (08:50)
[2018-01-16] MEDS: LORATADINE 10 MG TAB PO SCH (08:51)
[2018-01-16] MEDS: NICOTINE 21MG/24HR PATCH TRANSDERM SCH (08:51)
[2018-01-16] MEDS: MULTIVITAMINS, THERA 1 EACH TAB PO SCH (08:51)
[2018-01-16] MEDS: GABAPENTIN 300 MG CAP PO SCH ×3 (08:51→21:33)
[2018-01-16] MEDS: LACTOBACILLUS ACIDOPH & BULGAR 1 EACH PACKET PO SCH (08:51)
[2018-01-16] MEDS: LISINOPRIL 10 MG TAB PO SCH (08:51)
[2018-01-16] MEDS: cefTRIAXone IN SWFI 1,000 MG/10 ML SYRINGE IVP SCH (09:03)
--- NOTE | 2018-01-16 09:38 | XR ---
EXAMINATION TYPE: XR chest 1V portable DATE OF EXAM: 01/16/2018 COMPARISON: 01/15/2018 HISTORY: Ventilatory dependent respiratory failure TECHNIQUE: Single frontal view of the chest is obtained. FINDINGS: Again there is mild pulmonary vascular congestion and hazy bibasilar opacities. There is s ome obscuration of the hemidiaphragms, which is new from the prior. This is favored to represent atel ectasis or increasing confluent pulmonary edema given the dependent an bilateral location. There is stable placement of the endotracheal and enteric tubes with the distal tip of the endotrache al tube at the level of the aortic arch and the fenestrated portion of the enteric tube below the gas troesophageal junction. Cardiomediastinal silhouette is upper limits of normal in size. Osseous struc tures appear intact. IMPRESSION: Persistent mild pulmonary vascular congestion and stable lines and tubes. Increasing bib asilar opacities may relate to confluent pulmonary edema or atelectasis given their dependent bilater al location.
[2018-01-16 11:57] VITALS: BMI 19.0
[2018-01-16 12:12] LABS: Glucose,Whole Blood 128 mg/dL (75-99)
[2018-01-16 12:44] LABS: ABG Base Excess 5.7 mmol/L; ABG HCO3 32 mmol/L (21-25); ABG Oxygen Saturation 96.6 % (94-97); ABG PCO2 64 mmHg (35-45); ABG PH 7.31 (7.35-7.45); ABG PO2 90 mmHg (83-108); ABG TCO2 34 mmol/L (19-24)
[2018-01-16] MEDS: HEPARIN SODIUM,PORCINE 5,000 UNIT/ML 1 ML VIAL SQ SCH ×2 (12:47→15:55)
[2018-01-16] MEDS: PANTOPRAZOLE 40 MG/10 ML VIAL IVP SCH (13:02)
--- NOTE | 2018-01-16 17:48 | PN ---
PROGRESS NOTE DATE OF SERVICE: 01/16/2018 PRESENTING COMPLAINT: Patient intubated. INTERVAL HISTORY: This patient presents with acute possible non-Q-wave CO, ischemic cardiomyopathy, acute respiratory failure, remains on the ventilator, FiO2 of 50 and a PEEP of 5. The patient also remains on Levophed drip. Diprivan was held up today again for weaning. Tube feeding remains at 40 mL/h. The patient also was on IV heparin. The patient has family members present. REVIEW OF SYSTEMS: Patient is currently intubated. CURRENT MEDICATIONS: Reviewed that include: 1. IV heparin. 2. Levophed. 3. Diprivan. Dose significantly cut back. 4. Tube feeding. EXAMINATION: Temperature 98.6, pulse 120, respirations 26, blood pressure 113/56, pulse ox 94%, intubated. EYES: Pupils equal. Conjunctivae normal. HEENT: External nose and ears normal. Oral cavity: Endotracheal tube in place. NECK: JVD unable to assess. Mass not palpable. RESPIRATORY: Effort increased. LUNGS: Decreased breath sounds. Prolonged expiration. CARDIOVASCULAR: First and second sounds normal. No edema. ABDOMEN: Soft, nontender. Liver and spleen not palpable. PSYCHIATRY: Unable to assess. Neurological pupils are equal. The patient does move around, possibly following some simple commands. INVESTIGATIONS: White count 9.6, hemoglobin. Blood gases seen. Potassium 3.8, BUN 26, creatinine 0.46. Accu-Cheks are noted. The patient's sputum culture is growing Streptococcus pneumoniae. Chest x-ray shows infiltrates. ASSESSMENT: 1. Acute hypoxic respiratory failure and acute hypercapnic respiratory failure from underlying chronic obstructive pulmonary disease exacerbation. 2. Acute chronic obstructive pulmonary disease exacerbation in a current smoker. 3. Chronic nicotine dependence. Patient is a cigarette smoker. 4. Acute respiratory failure, currently ventilator assisted. 5. Pseudomonas pneumonia with septic and hypotensive shock on pressure support. 6. History of essential hypertension. 7. Hyperlipidemia. 8. Peripheral artery disease. 9. Acute non-Q-wave myocardial infarction. 10.Ischemic cardiomyopathy, ejection fraction 35%-40% present. PLAN: Continue current medication and treatment plan. The patient did succeed with weaning earlier today. The patient's dose of Diprivan is being cut back. Supportive care, pressure support to continue. Antibiotics are to continue. MMODL / IJN: [id number] /
--- NOTE | 2018-01-16 17:57 | PN ---
PROGRESS NOTE DATE OF SERVICE: 01/15/2018 PRESENTING COMPLAINT: Intubated. INTERVAL HISTORY: This patient was seen by me yesterday on 01/15/2018. The patient was in the ICU, intubated. Patient's drips include Levophed, heparin and tube feeding at 40 mL/hour. Patient remains on the ventilator with FiO2 of 50 and PEEP of 5. Patient does move about a bit spontaneously. REVIEW OF SYSTEMS: Patient is intubated. CURRENT MEDICATIONS: Current medications are reviewed that include: 1. IV Levophed. 2. IV heparin. 3. Propofol. 4. Tube feeding. 5. IV ceftriaxone. 6. IV Solu-Medrol. PHYSICAL EXAMINATION: Temperature 99.1, pulse 118, respiration 22, blood pressure 152/81, pulse of 95% on the ventilator. GENERAL APPEARANCE: Lying in bed, intubated. EYES: Pupils equal. Conjunctivae normal. HEENT: Conjunctivae normal. Oral cavity: Endotracheal tube in place. NECK: JVD unable to assess. Mass not palpable. RESPIRATORY: Effort increased. LUNGS: Decreased breath sounds. Prolonged expiration. CARDIOVASCULAR: First and second sounds normal. No edema. ABDOMEN: Soft, non-tender. Liver and spleen not palpable. NEUROLOGICAL: Pupils are equal. Patient does move about spontaneously. INVESTIGATIONS: White count 13.1, hemoglobin 11.2, potassium 4.2, BUN 23, creatinine 0.51. Troponin peaked at 4.9. Today it is 3.9. ASSESSMENT: 1. Acute hypoxic respiratory failure and acute hypercapnic respiratory failure from underlying chronic obstructive pulmonary disease. 2. Chronic nicotine dependence. Patient is a cigarette smoker. 3. Acute hypoxic respiratory failure; patient requiring ventilator assistance. 4. Essential hypertension. 5. Hyperlipidemia. 6. Peripheral artery disease. 7. Acute respiratory acidosis. 8. Acute severe chronic obstructive pulmonary disease exacerbation. 9. IV heparin monitoring. 10.Acute non-Q-wave myocardial infarction, possibly type 2 myocardial infarction from hemodynamic mismatch. 11.Pneumococcal pneumonia causing sepsis and septic shock, present on admission. 12.Possible ischemic cardiomyopathy, ejection fraction 30% to 35%. PLAN: Continue current medication and treatment plan. I spoke to the family at the bedside. Continue with supportive care and pressure support, antibiotics. Prognosis is guarded. MMODL / IJN: [id number] /
[2018-01-16 18:14] LABS: Glucose,Whole Blood 159 mg/dL (75-99)
[2018-01-16] MEDS: ATORVASTATIN 40 MG TAB PO SCH (21:33)
[2018-01-16 23:57] LABS: Glucose,Whole Blood 146 mg/dL (75-99)
[2018-01-17] MEDS: HEPARIN SODIUM,PORCINE 5,000 UNIT/ML 1 ML VIAL SQ SCH ×3 (00:25→16:32)
[2018-01-17] MEDS: methylPREDNISolone SOD SUCCI 125 MG/2 ML VIAL IV SCH ×4 (00:25→18:32)
[2018-01-17] MEDS: INSULIN ASPART 100 UNIT/ML 1 ML 10 ML VIAL SQ SCH ×4 (00:26→18:32)
[2018-01-17] MEDS: LORazepam 2 MG/ML INJ IV PRN ×2 (02:19→16:31)
[2018-01-17] MEDS: IPRATROPIUM-ALBUTEROL 3 ML NEB INHALATION SCH ×6 (03:09→23:15)
[2018-01-17 04:50] LABS: Basophils % (A) 0 %; Eosinophils % (A) 0 %; HCT 33.7 % (34.0-46.0); HGB 10.6 gm/dL (11.4-16.0); Hypochromasia Slight; Lymphocytes # (A) 0.5 k/uL (1.0-4.8); Lymphocytes % (A) 7 %; MCH 29.8 pg (25.0-35.0); MCHC 31.5 g/dL (31.0-37.0); MCV 94.7 fL (80.0-100.0); Mean Platelet Volume 7.8; Monocytes # (A) 0.3 k/uL (0-1.0); Monocytes % (A) 4 %; Neutrophils # (A) 5.9 k/uL (1.3-7.7); Neutrophils % (A) 87 %; Platelet Count 325 k/uL (150-450); RBC 3.56 m/uL (3.80-5.40); RDW 13.8 % (11.5-15.5); WBC 6.8 k/uL (3.8-10.6)
[2018-01-17 05:01] LABS: Anion Gap 6 mmol/L; Blood Urea Nitrogen 31 mg/dL (7-17); Calcium 8.9 mg/dL (8.4-10.2); Carbon Dioxide 32 mmol/L (22-30); Chloride 106 mmol/L (98-107); Glucose 154 mg/dL (74-99); Magnesium 2.3 mg/dL (1.6-2.3); Phosphorus 2.2 mg/dL (2.5-4.5); Potassium 4.3 mmol/L (3.5-5.1); Sodium 144 mmol/L (137-145)
[2018-01-17 05:23] LABS: ABG Base Excess 7.7 mmol/L; ABG HCO3 34 mmol/L (21-25); ABG Oxygen Saturation 94.6 % (94-97); ABG PCO2 64 mmHg (35-45); ABG PH 7.33 (7.35-7.45); ABG PO2 75 mmHg (83-108); ABG TCO2 36 mmol/L (19-24)
[2018-01-17] MEDS: SODIUM CHLORIDE 0.9% 1,000 ML IV SCH ×2 (05:37→13:56)
[2018-01-17 06:02] LABS: Glucose,Whole Blood 156 mg/dL (75-99)
[2018-01-17] MEDS: BUDESONIDE 1 MG/2 ML NEBU INHALATION SCH ×2 (08:01→19:31)
--- NOTE | 2018-01-17 08:04 | XR ---
EXAMINATION TYPE: XR chest 1V portable DATE OF EXAM: 01/17/2018 COMPARISON: 118 HISTORY: SOB, Follow Up FINDINGS: Indwelling tubes and catheters are unchanged. No change in scattered perihilar and basilar opacities. Stable appearance of the cardio-mediastinal structures at this time. IMPRESSION: 1. Stable portable chest. Clinical correlation and follow up until resolution is recommended.
[2018-01-17] MEDS: NICOTINE 21MG/24HR PATCH TRANSDERM SCH (08:17)
[2018-01-17] MEDS: CHLORHEXIDINE GLUCONATE 15 ML CUP MUCOUS MEM SCH (08:17)
[2018-01-17] MEDS: PANTOPRAZOLE 40 MG/10 ML VIAL IVP SCH (08:17)
[2018-01-17] MEDS: cefTRIAXone IN SWFI 1,000 MG/10 ML SYRINGE IVP SCH (08:17)
[2018-01-17] MEDS: LORATADINE 10 MG TAB PO SCH (08:18)
[2018-01-17] MEDS: GABAPENTIN 300 MG CAP PO SCH ×3 (08:18→20:50)
[2018-01-17] MEDS: LACTOBACILLUS ACIDOPH & BULGAR 1 EACH PACKET PO SCH (08:18)
[2018-01-17] MEDS: AZITHROMYCIN 500 MG TAB PO SCH (08:18)
[2018-01-17] MEDS: MULTIVITAMINS, THERA 1 EACH TAB PO SCH (08:18)
[2018-01-17] MEDS: ASPIRIN 325 MG TAB PO SCH (08:18)
[2018-01-17] MEDS: LISINOPRIL 10 MG TAB PO SCH (08:18)
[2018-01-17] MEDS: CILOSTAZOL 100 MG TAB PO SCH (10:17)
[2018-01-17 12:30] LABS: ABG Base Excess 8.7 mmol/L; ABG HCO3 34 mmol/L (21-25); ABG Oxygen Saturation 97.1 % (94-97); ABG PCO2 64 mmHg (35-45); ABG PH 7.34 (7.35-7.45); ABG PO2 95 mmHg (83-108); ABG TCO2 36 mmol/L (19-24)
--- NOTE | 2018-01-17 12:31 | P.PN ---
Subjective Progress Note Date: 01/17/18 On today's evaluation of [id number], I'm seeing this patient for Dr. Blackman. As mentioned, the patient has severe COPD with a baseline FEV1 of 30% of predicted based on a spirometer this was done in 2016. The patient does not have asthma and her disease is predominantly advanced COPD. She came in for an acute COPD exacerbation, limited bilateral pneumonia and a sputum apple turner to be positive for strep pneumo and the patient is currently on a combination of antibiotics including Rocephin and Zithromax. The patient is also receiving DuoNeb nebulized she was around the clock and IV Solu-Medrol. She is intubated on a mechanical ventilator. She failed BiPAP therapy and as such she was intubated. On today's evaluation, she is an assist-control mode of ventilation at the rate of 20, tidal volume of 3:15 FiO2 of 50% and a PEEP of 5. Peak airway pressures around 29. She is still bronchospastic and wheezy. Chest x-ray shows hyperinflation and ET tube is in a good location. No pleural effusion. No significant consolidation. No significance secretions from the orotracheal tube. No fever or chills. No hemodynamic instability. The patient is known also to have coronary artery disease and she has had previous non-ST segment elevation myocardial infarction and she has also CHF with systolic dysfunction and ejection fraction of 35%. The patient is producing adequate amount of urine output. No nausea or vomiting. She is a mild low grade sinus tachycardia. No other significant events overnight. When the process of getting this patient a sedation holiday. The patient apparently was given a spontaneous breathing trial yesterday which she did not tolerate and the weaning process itself was aborted. Objective - Vital Signs Vital signs: Vital Signs Temp 98.2 F 01/17/18 12:00 Pulse 92 01/17/18 12:00 Resp 21 01/17/18 12:00 BP 114/61 01/17/18 12:00 Pulse Ox 95 01/17/18 12:00 Intake & Output 01/16/18 01/17/18 01/17/18 18:59 06:59 18:59 Intake Total 2089.224 1660 1029.733 Output Total 443 602 220 Balance 6737.208 4041 809.733 Weight 44.2 kg 53.5 kg Intake: IV 1020 1200 600 Sodium Chloride 0.9% 1, 1000 1200 600 000 ml @ 100 mls/hr IV . Q10H [facility] Rx#:[id number] Sodium Chloride 0.9% 1, 20 000 ml @ 150 mls/hr IV . Q6H40M [facility] Rx#:[id number] Intake, IV Titration 499.224 59.733 Amount Heparin Sodium,Porcine/ 68.544 D5w Pmx 25,000 unit In Dextrose/Water 1 500ml. bag @ 12 UNITS/KG/HR 10. 08 mls/hr IV .Q24H [facility] Rx #:[id number] Norepinephrin 4 mg-0.9% 220.500 Ns Pmx 4 mg In 250 ml @ Titrate IV .Q0M [facility] Rx#: [id number] Potassium Phosphate 10 125 mmol In Sodium Chloride 0 .9% 250 ml @ 125 mls/hr IV ONCE ONE Rx#:[id number] Propofol 1,000 mg In 85.180 59.733 Empty Bag 1 bag @ Titrate IV .Q0M [facility] Rx#: [id number] Tube Feeding 480 400 280 Other 90 60 90 Output: Urine 443 602 220 Other: Voiding Method Indwelling Catheter Indwelling Catheter Indwelling Catheter # Bowel Movements 1 - Exam Patient is intubated on full ventilator support sedated with propofol drip, she is somewhat arousable to deep painful stimulation. When the process of getting this patient a sedation holiday. - Constitutional General appearance: mild distress, thin - EENT Eyes: PERRLA, normal appearance Ears: bilateral: normal - Neck Neck: normal ROM Carotids: bilateral: upstroke normal, bruit absent Thyroid: bilateral: normal size - Respiratory Respiratory: bilateral: diminished, rhonchi (Noted during both inspiratory and expiratory phase), wheezing (Noted both during inspiratory expiratory phase), breath sounds are diminished and there is prolongation of the expiratory phase of breathing and obvious expiratory wheezes without the lung aguilera bilaterally. - Cardiovascular Heart sounds: normal: S1, S2 - Gastrointestinal General gastrointestinal: decreased bowel sounds, soft - Integumentary Integumentary: decreased turgor - Neurologic Patient intubated unable to do a detailed exam but does follow commands moving all 4 extremity Neurologic: CNII-XII intact - Musculoskeletal Patient intubated unable to do a detailed exam Musculoskeletal: generalized weakness, strength equal bilaterally - Psychiatric Patient intubated unable to do a detailed exam - Labs CBC & Chem 7: 01/17/18 04:32 01/17/18 04:32 Labs: Abnormal Lab Results - Last 24 Hours (Table) 01/16/18 01/16/18 01/16/18 Range/Units 12:41 18:13 23:54 RBC (3.80-5.40) m/uL Hgb (11.4-16.0) gm/dL Hct (34.0-46.0) % Lymphocytes # (1.0-4.8) k/uL ABG pH 7.31 L (7.35-7.45) ABG pCO2 64 H (35-45) mmHg ABG pO2 (83-108) mmHg ABG HCO3 32 H (21-25) mmol/L ABG Total CO2 34 H (19-24) mmol/L Carbon Dioxide (22-30) mmol/L BUN (7-17) mg/dL Creatinine (0.52-1.04) mg/dL Glucose (74-99) mg/dL POC Glucose (mg/dL) 159 H 146 H (75-99) mg/dL Phosphorus (2.5-4.5) mg/dL 01/17/18 01/17/18 01/17/18 Range/Units 04:32 04:32 05:21 RBC 3.56 L (3.80-5.40) m/uL Hgb 10.6 L (11.4-16.0) gm/dL Hct 33.7 L (34.0-46.0) % Lymphocytes # 0.5 L (1.0-4.8) k/uL ABG pH 7.33 L (7.35-7.45) ABG pCO2 64 H (35-45) mmHg ABG pO2 75 L (83-108) mmHg ABG HCO3 34 H (21-25) mmol/L ABG Total CO2 36 H (19-24) mmol/L Carbon Dioxide 32 H (22-30) mmol/L BUN 31 H (7-17) mg/dL Creatinine 0.40 L (0.52-1.04) mg/dL Glucose 154 H (74-99) mg/dL POC Glucose (mg/dL) (75-99) mg/dL Phosphorus 2.2 L (2.5-4.5) mg/dL 01/17/18 Range/Units 05:38 RBC (3.80-5.40) m/uL Hgb (11.4-16.0) gm/dL Hct (34.0-46.0) % Lymphocytes # (1.0-4.8) k/uL ABG pH (7.35-7.45) ABG pCO2 (35-45) mmHg ABG pO2 (83-108) mmHg ABG HCO3 (21-25) mmol/L ABG Total CO2 (19-24) mmol/L Carbon Dioxide (22-30) mmol/L BUN (7-17) mg/dL Creatinine (0.52-1.04) mg/dL Glucose (74-99) mg/dL POC Glucose (mg/dL) 156 H (75-99) mg/dL Phosphorus (2.5-4.5) mg/dL Assessment and Plan Plan: Assessment 1 acute hypercapnic/hypoxic respiratory failure secondary to COPD exacerbation and bilateral pneumonia 2 acute bilateral pneumococcal pneumonia 3 acute respiratory failure requiring intubation mechanical ventilation. The patient failed BiPAP therapy and currently she is on a mechanical ventilation on assist control mode. Peak airway pressures still elevated at 2829. She is receiving low tidal volume ventilation. Blood gases was noted. Chest x-ray shows no airspace disease or consolidation. ET tube is in a good location 4 CHF systolic dysfunction, with an ejection fraction of 35% with inferior wall hypokinesis 5 coronary artery disease with previous non-ST segment elevation myocardial infarction 6 severe COPD with an FEV1 of 30% of predicted at baseline 7 chronic hypoxic respiratory failure 8 hyperlipidemia 9 hypertension 10 chronic peripheral neuropathy 11 chronic smoker Plan This will be a difficult wean. The patient's baseline lung capacity is extremely poor. She is a chronic smoker. She failed a spontaneous breathing trial yesterday and the same will be done today. We'll given a sedation holiday , we'll check weaning parameters and following that will given a brief spontaneous breathing trial. If we decide extubation, she'll be extubated to BiPAP. Otherwise she may need another 24 hours and this will largely depend on her response a spontaneous breathing trial. Continue Rocephin and Zithromax. Continue bronchodilators patient continues steroids. Prognosis poor specially the above-mentioned comorbidities. Family is at the bedside. Talked to the daughter's and updated on her condition. Meanwhile, continue the supportive care and further recommendations are to follow based on her progress today. Time with Patient: Greater than 30
[2018-01-17 12:37] LABS: Glucose,Whole Blood 120 mg/dL (75-99)
[2018-01-17] MEDS ORDERED: FUROSEMIDE 10 MG/ML 4 ML VIAL IV STA (13:10)
[2018-01-17 18:35] LABS: Glucose,Whole Blood 139 mg/dL (75-99)
[2018-01-17] MEDS: ATORVASTATIN 40 MG TAB PO SCH (20:10)
[2018-01-17] MEDS: ALPRAZolam 0.25 MG TAB PO PRN (20:10)
[2018-01-18 00:17] LABS: Glucose,Whole Blood 115 mg/dL (75-99)
[2018-01-18] MEDS: methylPREDNISolone SOD SUCCI 125 MG/2 ML VIAL IV SCH ×3 (00:22→12:59)
[2018-01-18] MEDS: HEPARIN SODIUM,PORCINE 5,000 UNIT/ML 1 ML VIAL SQ SCH ×2 (00:23→07:37)
[2018-01-18] MEDS: INSULIN ASPART 100 UNIT/ML 1 ML 10 ML VIAL SQ SCH ×3 (00:42→12:46)
[2018-01-18] MEDS: LORazepam 2 MG/ML INJ IV PRN (01:27)
[2018-01-18] MEDS: IPRATROPIUM-ALBUTEROL 3 ML NEB INHALATION SCH ×3 (03:05→12:25)
[2018-01-18 04:11] LABS: Basophils % (A) 0 %; Eosinophils % (A) 0 %; HCT 35.3 % (34.0-46.0); HGB 11.4 gm/dL (11.4-16.0); Hypochromasia Slight; Lymphocytes # (A) 0.6 k/uL (1.0-4.8); Lymphocytes % (A) 8 %; MCH 30.4 pg (25.0-35.0); MCHC 32.3 g/dL (31.0-37.0); Mean Platelet Volume 7.1; Monocytes # (A) 0.4 k/uL (0-1.0); Monocytes % (A) 5 %; Neutrophils # (A) 6.6 k/uL (1.3-7.7); Neutrophils % (A) 85 %; Platelet Count 342 k/uL (150-450); RBC 3.75 m/uL (3.80-5.40); RDW 13.7 % (11.5-15.5); WBC 7.8 k/uL (3.8-10.6)
[2018-01-18 04:20] LABS: Anion Gap 6 mmol/L; Blood Urea Nitrogen 35 mg/dL (7-17); Calcium 9.3 mg/dL (8.4-10.2); Carbon Dioxide 36 mmol/L (22-30); Chloride 103 mmol/L (98-107); Glucose 112 mg/dL (74-99); Magnesium 2.3 mg/dL (1.6-2.3); Phosphorus 2.7 mg/dL (2.5-4.5); Potassium 4.3 mmol/L (3.5-5.1); Sodium 145 mmol/L (137-145)
[2018-01-18] MEDS: SODIUM CHLORIDE 0.9% 1,000 ML IV SCH (05:56)
[2018-01-18] MEDS: PANTOPRAZOLE 40 MG/10 ML VIAL IVP SCH (07:38)
[2018-01-18] MEDS: MULTIVITAMINS, THERA 1 EACH TAB PO SCH (07:38)
[2018-01-18] MEDS: NICOTINE 21MG/24HR PATCH TRANSDERM SCH (07:38)
[2018-01-18] MEDS: ASPIRIN 325 MG TAB PO SCH (07:38)
[2018-01-18] MEDS: GABAPENTIN 300 MG CAP PO SCH (07:38)
[2018-01-18] MEDS: LISINOPRIL 10 MG TAB PO SCH (07:38)
[2018-01-18] MEDS: LORATADINE 10 MG TAB PO SCH (07:38)
[2018-01-18] MEDS: AZITHROMYCIN 500 MG TAB PO SCH (07:38)
[2018-01-18] MEDS: LACTOBACILLUS ACIDOPH & BULGAR 1 EACH PACKET PO SCH (07:38)
[2018-01-18] MEDS: cefTRIAXone IN SWFI 1,000 MG/10 ML SYRINGE IVP SCH (07:40)
[2018-01-18] MEDS: BUDESONIDE 1 MG/2 ML NEBU INHALATION SCH (07:56)
[2018-01-18] MEDS ORDERED: FUROSEMIDE 10 MG/ML 4 ML VIAL IV STA (08:56)
--- NOTE | 2018-01-18 09:23 | XR ---
EXAMINATION TYPE: XR chest 1V DATE OF EXAM: 01/18/2018 CLINICAL HISTORY: Difficulty breathing and COPD progress study. TECHNIQUE: Single AP portable upright view of the chest is obtained. COMPARISON: Chest x-ray from one day earlier and older studies. CTA chest January 14, 2018. FINDINGS: There is interval extubation with removal of endotracheal and orogastric tubes. There is c hronic emphysematous change with persistent tiny bilateral pleural effusions and associated patchy bi basilar atelectasis redemonstrated. Cardiac silhouette size is stable and upper limits of normal with atherosclerotic aorta. Osseous structures are intact. IMPRESSION: Interval extubation. Background chronic emphysematous change with tiny bilateral pleural effusions remains present.
[2018-01-18] MEDS ORDERED: LEVOFLOXACIN 750 MG TAB PO SCH (09:30)
[2018-01-18 10:37] VITALS: RESP 26
[2018-01-18 11:10] LABS: ABG Base Excess 9.8 mmol/L; ABG HCO3 38 mmol/L (21-25); ABG Oxygen Saturation 95.3 % (94-97); ABG PH 7.22 (7.35-7.45); ABG PO2 92 mmHg (83-108); ABG TCO2 40 mmol/L (19-24)
[2018-01-18 11:13] LABS: ABG PCO2 92 mmHg (35-45)
[2018-01-18] MEDS ORDERED: FUROSEMIDE 10 MG/ML 10 ML VIAL IV STA (12:17)
--- NOTE | 2018-01-18 12:18 | P.PN ---
Subjective Progress Note Date: 01/18/18 On today's evaluation of 01/17/2018, I'm seeing this patient for Dr. Blackman. As mentioned, the patient has severe COPD with a baseline FEV1 of 30% of predicted based on a spirometer this was done in 2016. The patient does not have asthma and her disease is predominantly advanced COPD. 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 The patient is also receiving DuoNeb nebulized she was around the clock and IV Solu-Medrol. She is intubated on a mechanical ventilator. She failed BiPAP therapy and as such she was intubated. On today's evaluation, she is an assist-control mode of ventilation at the rate of 20, tidal volume of 350 FiO2 of 50% and a PEEP of 5. Peak airway pressures around 29. She is still bronchospastic and wheezy. Chest x-ray shows hyperinflation and ET tube is in a good location. No pleural effusion. No significant consolidation. No significance secretions from the orotracheal tube. No fever or chills. No hemodynamic instability. The patient is known also to have coronary artery disease and she has had previous non-ST segment elevation myocardial infarction and she has also CHF with systolic dysfunction and ejection fraction of 35%. The patient is producing adequate amount of urine output. No nausea or vomiting. She is a mild low grade sinus tachycardia. No other significant events overnight. When the process of getting this patient a sedation holiday. The patient apparently was given a spontaneous breathing trial yesterday which she did not tolerate and the weaning process itself was aborted. On 01/18/2018, I'm seeing this patient for a follow-up. Based on yesterday's assessment, the patient was extubated to a BiPAP and she use the BiPAP on and off during the day and a continuously at nighttime. She tolerated it very well and earlier this morning she was on 6 L of oxygen nasal cannula and she was doing relatively well. Subsequently as the day went by the patient became progressively more lethargic and started having labored breathing. BiPAP was restarted same setting of a pressure of 14/5 cm of water. She became progressively more tachycardic and currently she is in a sinus rhythm at the rate of 130 to 140. She is using some excessive muscle breathing. Breath sounds are diminished bilaterally. She remains bronchospastic and wheezy. The strep pneumo there was in the patient's lungs collar turner operator to be resistant to Zithromax and intermittent sensitivity to Rocephin have already made the change to put this patient on Levaquin. She remains on IV Solu-Medrol. She remains on bronchodilators around the clock. She remains on a combination of Perforomist and Perforomist and Pulmicort neb last treatment twice a day. 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 A repeat blood gases was done and showed a pH of 7.22 with a pCO2 of 92 and pO2 92 and this was done and FiO2 of 50%. Tidal volume return on the BiPAP machine is around 400 mL. The family the bedside. I had a lengthy discussion with them. I offered them reintubation however they declined. They made it clear to me that the patient' s wishes were not to get intubated or intubated on the first place. Once extubated yesterday she made that wish medicate her family and the family including the daughter daughters declined to reintubated at this point in time. I was agreeable to that decision knowing that she has a very poor baseline performance and functional status. Her FEV1 was 30% based on the previous spirometry 2015 and the patient also has an underlying cardiomyopathy with CHF and systolic dysfunction with an ejection fraction of 35%. Objective - Vital Signs Vital signs: Vital Signs Temp 98.1 F 01/18/18 08:00 Pulse 128 H 01/18/18 10:00 Resp 26 H 01/18/18 10:00 BP 162/96 01/18/18 10:00 Pulse Ox 94 L 01/18/18 10:00 Intake & Output 01/17/18 01/18/18 01/18/18 18:59 06:59 18:59 Intake Total 1329.733 440 320 Output Total 1670 555 115 Balance -340.267 -115 205 Weight 54.6 kg Intake: IV 900 440 120 Sodium Chloride 0.9% 1, 900 440 120 000 ml @ 40 mls/hr IV . Q24H [facility] Rx#:[id number] Intake, IV Titration 59.733 Amount Propofol 1,000 mg In 59.733 Empty Bag 1 bag @ Titrate IV .Q0M [facility] Rx#: [id number] Oral 200 Tube Feeding 280 Other 90 Output: Urine 1670 555 115 Other: Voiding Method Indwelling Catheter Indwelling Catheter Indwelling Catheter # Voids 1 - Exam Patient is using some excessive muscle breathing even while being on a BiPAP at a pressure of 14/5 cm of water. She is in distress which is thought to be mild to moderate. She is still able to remain synchronous with the ventilator. She is awake. Moves extremities upon demand. - Constitutional General appearance: mild distress, thin - EENT Eyes: PERRLA, normal appearance Ears: bilateral: normal - Neck Neck: normal ROM Carotids: bilateral: upstroke normal, bruit absent Thyroid: bilateral: normal size - Respiratory Respiratory: bilateral: diminished, rhonchi (Noted during both inspiratory and expiratory phase), wheezing (Noted both during inspiratory expiratory phase), breath sounds are diminished and there is prolongation of the expiratory phase of breathing and obvious expiratory wheezes without the lung aguilera bilaterally. - Cardiovascular Heart sounds: normal: S1, S2 - Gastrointestinal General gastrointestinal: decreased bowel sounds, soft - Integumentary Integumentary: decreased turgor - Neurologic Awake, moving all 4 extremities and the neurologic exam is nonfocal. Neurologic: CNII-XII intact - Musculoskeletal Patient is a week and has motor weakness in all 4 extremities. She is moving all 4 extremities however and there is no focal neurological deficits. Musculoskeletal: generalized weakness, strength equal bilaterally - Psychiatric There is obviously a component of anxiety. A detailed psychiatric evaluation cannot be completed. - Labs CBC & Chem 7: 01/18/18 03:57 01/18/18 03:57 Labs: Abnormal Lab Results - Last 24 Hours (Table) 01/17/18 01/17/18 01/17/18 Range/Units 12:24 12:26 18:31 RBC (3.80-5.40) m/uL Lymphocytes # (1.0-4.8) k/uL ABG pH 7.34 L (7.35-7.45) ABG pCO2 64 H (35-45) mmHg ABG HCO3 34 H (21-25) mmol/L ABG Total CO2 36 H (19-24) mmol/L ABG O2 Saturation 97.1 H (94-97) % Carbon Dioxide (22-30) mmol/L BUN (7-17) mg/dL Creatinine (0.52-1.04) mg/dL Glucose (74-99) mg/dL POC Glucose (mg/dL) 120 H 139 H (75-99) mg/dL 01/18/18 01/18/18 01/18/18 Range/Units 00:04 03:57 03:57 RBC 3.75 L (3.80-5.40) m/uL Lymphocytes # 0.6 L (1.0-4.8) k/uL ABG pH (7.35-7.45) ABG pCO2 (35-45) mmHg ABG HCO3 (21-25) mmol/L ABG Total CO2 (19-24) mmol/L ABG O2 Saturation (94-97) % Carbon Dioxide 36 H (22-30) mmol/L BUN 35 H (7-17) mg/dL Creatinine 0.50 L (0.52-1.04) mg/dL Glucose 112 H (74-99) mg/dL POC Glucose (mg/dL) 115 H (75-99) mg/dL 01/18/18 Range/Units 11:09 RBC (3.80-5.40) m/uL Lymphocytes # (1.0-4.8) k/uL ABG pH 7.22 L (7.35-7.45) ABG pCO2 92 H* (35-45) mmHg ABG HCO3 38 H (21-25) mmol/L ABG Total CO2 40 H (19-24) mmol/L ABG O2 Saturation (94-97) % Carbon Dioxide (22-30) mmol/L BUN (7-17) mg/dL Creatinine (0.52-1.04) mg/dL Glucose (74-99) mg/dL POC Glucose (mg/dL) (75-99) mg/dL Microbiology - Last 24 Hours (Table) 01/14/18 05:30 Gram Stain - Final Sputum Sputum Culture - Final Streptococcus pneumoniae Assessment and Plan Plan: Assessment 1 acute hypercapnic/hypoxic respiratory failure secondary to COPD exacerbation and bilateral pneumonia, the patient was extubated yesterday and over the past 24 hours she was able to manage well and she was quite stable on a BiPAP. Earlier this morning she became more short of breath and she went to respiratory distress and subsequent blood gases showed worsening of the acid- base status and with worsening of the respirator acidosis which is an acute on top of chronic hypercapnic respiratory failure. Chest x-ray shows some mild pulmonary vessel congestion. The patient is being treated for pneumococcal pneumonia. Obviously she is using and some muscle breathing well on the BiPAP and the patient potentially with failed BiPAP therapy. Offered reintubation to the family, declined. 2 acute bilateral pneumococcal pneumonia, intermediate resistance to Rocephin and the patient is currently on Levaquin. 3 acute respiratory failure requiring intubation mechanical ventilation. See details above. 4 CHF systolic dysfunction, with an ejection fraction of 35% with inferior wall hypokinesis 5 coronary artery disease with previous non-ST segment elevation myocardial infarction 6 severe COPD with an FEV1 of 30% of predicted at baseline 7 chronic hypoxic respiratory failure 8 hyperlipidemia 9 hypertension 10 chronic peripheral neuropathy 11 chronic smoker Plan After being extubated for 24 hours, the patient failed again and currently she is on acute on top of chronic hypercapnic respiratory failure with significant respiratory distress even one on the BiPAP. We'll try another dose of Lasix 60 mg IV push. Continue bronchodilators. Continue steroids. Offered reintubation yet this was declined by the daughters, and the decision was made to on that the patient's wishes with did not want intubation the first place or reintubation on yesterday's conversation. We are going to consider comfort care measures if the patient shows further worsening and or signs of respiratory distress or hemodynamic compromise. She was tachycardic at this point. She is taking neck. We'll continue for BiPAP support. We'll try more diuretics. We'll continue to follow. Prognosis poor. May potentially from respiratory failure. May consider end-of-life care if further worsening her condition. Critically care evaluation. 40 minutes. Discussion was done with the family. Time with Patient: Greater than 30
[2018-01-18 12:31] VITALS: BP 153/96; PULSE 129; TEMP 98.8
[2018-01-18] MEDS ORDERED: ACETAMINOPHEN SUPPOSITORY 650 MG SUPP RECTAL PRN (12:53)
[2018-01-18] MEDS ORDERED: MORPHINE SULFATE 2 MG/ML SYRINGE IV PRN (12:53)
[2018-01-18] MEDS ORDERED: ATROPINE OPHTH SOLN 1% 5ML BTL SUBLINGUAL PRN (12:53)
[2018-01-18] MEDS ORDERED: MORPHINE SULFATE 2 MG/ML SYRINGE IVP ONE (12:53)
[2018-01-18] MEDS ORDERED: MORPHINE SULFATE (100 MG/2 ML) 100 MG in SODIUM CHLORIDE 0.9% 100 ML IV SCH (13:00)
--- NOTE | 2018-01-18 14:55 | PN ---
PROGRESS NOTE DATE OF SERVICE: 01/17/18. PRESENTING COMPLAINT: Patient extubated. INTERVAL HISTORY: Patient was seen by me yesterday in the ICU. Presented with acute non-Q-wave SD, acute respiratory failure, was on the ventilator, was extubated this morning. Extremely tired, run down. BiPAP in place, off pressure medications. The patient is tachycardic. Family is at the bedside. REVIEW OF SYSTEMS: Cannot really be done as patient is very tired, though awake and following commands. CURRENT MEDICATIONS: Reviewed. PHYSICAL EXAMINATION: Temperature 98.7, pulse 94, respiration 20, blood pressure 104/60. GENERAL APPEARANCE: Lying in bed, tired appearing, awake. EYES: Pupils equal. Conjunctivae normal. HEENT: External appearance of nose and ears normal. BiPAP in place. NECK: JVD unable to assess. Mass not palpable. RESPIRATORY: Effort increased. LUNGS: Diminished breath sounds. Prolonged expiration. Occasional crackles. CARDIOVASCULAR: First and second sounds. No edema. ABDOMEN: Soft, nontender. Liver and spleen not palpable. NEUROLOGICAL: Patient is awake, does follow simple commands. INVESTIGATIONS: White count 6.8, hemoglobin 10.6, potassium 4.3, BUN 31, creatinine 0.40. Chest x-ray reported to be a stable. ASSESSMENT: 1. Acute hypoxic respiratory failure and acute hypercapnic respiratory failure from underlying chronic obstructive pulmonary disease exacerbation. The patient is requiring ventilator support. No extubated this morning. 2. Acute chronic obstructive pulmonary disease exacerbation in a current smoker. 3. Chronic nicotine dependence, patient is a cigarette smoker. 4. Streptococcus pneumoniae pneumonia with septic and hypotensive shock, present on admission. 5. History of essential hypertension. 6. Hyperlipidemia. 7. Peripheral artery disease. 8. Acute non-Q-wave myocardial infarction. 9. Ischemic cardiomyopathy, EF 35 to 40%. PLAN: Continue current medication and treatment plan. Prognosis still remains guarded. The patient is on BiPAP support. Antibiotics to continue. MMODL / IJN: [id number] /
--- NOTE | 2018-01-18 15:01 | PN ---
PROGRESS NOTE DATE OF SERVICE: 01/18/18 PRESENTING COMPLAINT: Short of breath. INTERVAL HISTORY: This patient presented with acute non-Q-wave myocardial infarction, acute respiratory failure, was on the ventilator, extubated yesterday morning. Patient rather tired, requiring BiPAP, unable to breathe too well. Telemetry shows sinus tachycardia. Patient is tired and run down. The patient's FiO2 is 50%. REVIEW OF SYSTEMS: Difficult to assess as patient is rather tired. CURRENT MEDICATIONS: Reviewed that include DuoNeb, antibiotics, supportive care. PHYSICAL EXAMINATION: On examination temp 98.1, pulse 124, respirations 22, blood pressure 136/82, pulse ox 93% on 4-L. GENERAL APPEARANCE: Lying in bed, very tired-appearing. EYES: Pupils equal. Conjunctivae normal. HEENT: External appearance of nose and ears normal. Oral cavity dry. BiPAP in place. NECK: JVD unable to assess. Mass not palpable. RESPIRATORY: Effort increased. Lungs, decreased breath sounds, prolonged expiration and wheezing. CARDIOVASCULAR: First and second sounds, no edema. ABDOMEN: Soft, nontender. Liver and spleen not palpable. NEUROLOGICAL: Patient awake, following commands but very tired. INVESTIGATIONS: White count 7.8, hemoglobin 11.4. Blood gases show a pH of 7.22 and a pCO2 of 92. Potassium 4.3. ASSESSMENT: 1. Acute hypoxic and hypercapnic respiratory failure from severe chronic obstructive pulmonary disease, status post being on the ventilator, not doing too well. 2. Acute advanced chronic obstructive pulmonary disease exacerbation in a current smoker. 3. Streptococcus pneumoniae pneumonia with septic and hypotensive shock, present on admission. 4. Sinus tachycardia. 5. Hyperlipidemia. 6. Peripheral artery disease. 7. Acute non-Q-wave myocardial infarction. 8. Ischemic cardiomyopathy EF 35-40%. PLAN: Patient is not doing too well, still very tired. I am afraid she may have respiratory arrest again. At this time patient is put on BiPAP. Dr. Gomez is talked to the family earlier today. No family is currently present right now. Prognosis is not good. MMODL / IJN: [id number] /
--- NOTE | 2018-01-19 19:23 | DS ---
DISCHARGE SUMMARY DATE OF ADMISSION: 01/13/18. DATE OF DISCHARGE: 01/18/18. FINAL DIAGNOSES: 1. Acute hypoxic and hypercapnic respiratory failure from severe chronic obstructive pulmonary disease requiring ventilator support. 2. Acute advanced chronic obstructive pulmonary disease exacerbation in a current smoker. 3. Streptococcus pneumoniae pneumonia with sepsis and hypertensive shock, present on admission. 4. Sinus tachycardia. 5. Hyperlipidemia. 6. Peripheral artery disease. 7. Acute non-Q-wave myocardial infarction. 8. Ischemic cardiomyopathy EF 35-40%. CONSULTATION: 1. Dr. Blackman from Critical Care. 2. Dr. Aileen Salomon from Cardiology. HOSPITAL COURSE: This patient is a smoker, presented with severe COPD exacerbation, had to be intubated. Also had an acute non-Q-wave AL. 2D echo showed a low EF. The patient continued to do poorly. Patient was extubated the day before but continued to poorly. Family decided to make the patient comfort care because of poor symptom control. DISPOSITION: General inpatient hospice under [facility]. The patient disposed to the same. Copy to Dr. Kelly. MMRADHAL / MYKEN: [id number] /
== END 2018-01-18 14:46 | disposition hospice, inpatient (51) | DRG 871 ==
LOC: EC 15:51 → 6SEL 16:22 → 6ICU 01-14 05:48
PROVIDERS: ADMIT Hospitalist; ATTEND Hospitalist
PROC: 5A1945Z Respiratory Ventilation, 24-96 Consecutive Hours (ICD-10-PCS; principal; 2018-01-13)
PROC: 0BH18EZ Insertion of Endotracheal Airway into Trachea, Via Natural or Artificial Opening Endoscopic (ICD-10-PCS; principal; 2018-01-13)
DX: A41.9 Sepsis, unspecified organism (principal); I21.4 Non-ST elevation (NSTEMI) myocardial infarction; I50.23 Acute on chronic systolic (congestive) heart failure; J13 Pneumonia due to Streptococcus pneumoniae; J96.21 Acute and chronic respiratory failure with hypoxia; J96.22 Acute and chronic respiratory failure with hypercapnia; R65.21 Severe sepsis with septic shock; E87.2 Acidosis; J44.0 Chronic obstructive pulmonary disease with (acute) lower respiratory infection; J44.1 Chronic obstructive pulmonary disease with (acute) exacerbation; J45.52 Severe persistent asthma with status asthmaticus; R64 Cachexia; I11.0 Hypertensive heart disease with heart failure; E78.5 Hyperlipidemia, unspecified; E87.5 Hyperkalemia; F17.210 Nicotine dependence, cigarettes, uncomplicated; G62.9 Polyneuropathy, unspecified; I25.10 Atherosclerotic heart disease of native coronary artery without angina pectoris; I25.5 Ischemic cardiomyopathy; I73.9 Peripheral vascular disease, unspecified; Z16.19 Resistance to other specified beta lactam antibiotics; Z79.51 Long term (current) use of inhaled steroids; Z79.899 Other long term (current) drug therapy; Z82.49 Family history of ischemic heart disease and other diseases of the circulatory system; Z88.8 Allergy status to other drugs, medicaments and biological substances; Z51.5 Encounter for palliative care
CPT/HCPCS: 36415; 36600; 71045; 71275; 80048; 80053; 81001; 82550; 82553; 82805; 83036; 83735; 83880; 84100; 84132; 84484; 85025; 85379; 85610; 85730; 87070; 87077; 87186; 87205; 93005; 93306; 94002; 94003; 94640; 94644; 94660; 96361; 96374; 99291

== ENCOUNTER 2018-01-18 14:59 | Inpatient (IN) | payer MEDICAID ==
[2018-01-18] MEDS ORDERED: ONDANSETRON 4 MG/2 ML VIAL IVP PRN (15:03)
[2018-01-18] MEDS ORDERED: ATROPINE OPHTH SOLN 1% 5ML BTL SUBLINGUAL PRN (15:03)
[2018-01-18] MEDS ORDERED: LORazepam 2 MG/ML INJ IV PRN (15:03)
[2018-01-18] MEDS ORDERED: MORPHINE SULFATE 2 MG/ML SYRINGE IV PRN (15:03)
[2018-01-18] MEDS ORDERED: ACETAMINOPHEN SUPPOSITORY 650 MG SUPP RECTAL PRN (15:03)
[2018-01-18] MEDS ORDERED: BISACODYL 10 MG SUPP RECTAL PRN (15:13)
[2018-01-18] MEDS ORDERED: SODIUM CHLORIDE 0.9% 1,000 ML IV SCH (15:15)
[2018-01-18] MEDS ORDERED: MORPHINE SULFATE (100 MG/2 ML) 100 MG in SODIUM CHLORIDE 0.9% 100 ML IV SCH (15:15)
[2018-01-18 15:19] VITALS: RESP 18
[2018-01-18 16:58] VITALS: PULSE 75
[2018-01-18] MEDS ORDERED: NOREPINEPHRIN 4 MG-0.9% NS PMX 4 MG/250 ML ML IV ONE (22:36)
--- NOTE | 2018-01-19 19:17 | DS ---
DISCHARGE SUMMARY DATE OF ADMISSION: January 18, 2018. DATE : January 19, 2018. CAUSE OF : Chronic obstructive pulmonary disease. OTHER MEDICAL CONDITIONS: 1. Coronary artery disease. 2. Peripheral artery disease. 3. Ischemic cardiomyopathy, ejection fraction 35-40%. HOSPITAL COURSE: This patient admitted under GIP for comfort measures for discomfort, shortness of breath, put on a morphine drip. The patient succumbed to underlying condition. Copy to Dr. Kelly. MMDARRON / IJN: [id number] /
== END 2018-01-19 04:40 | disposition expired | DRG 951 ==
LOC: 6ICU 14:59
PROVIDERS: ADMIT Hospitalist; ATTEND Hospitalist
DX: Z51.5 Encounter for palliative care (principal); J44.9 Chronic obstructive pulmonary disease, unspecified; I25.10 Atherosclerotic heart disease of native coronary artery without angina pectoris; I73.9 Peripheral vascular disease, unspecified; I25.5 Ischemic cardiomyopathy